=== PATIENT | female | born 2005 | race Caucasian/White ===

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

== ENCOUNTER → 2025-06-11 11:26 | Outpatient (BNV) | payer OTHER, MEDICAID, SELFPAY | PROVIDERS: Visit Provider Clinical Nurse Specialist Psychiatric/Mental Health | DX: F33.2 Major depressive disorder, recurrent severe without psychotic features (principal); F41.1 Generalized anxiety disorder; F41.0 Panic disorder [episodic paroxysmal anxiety] | CPT/HCPCS: 99205; 99417 ==

== ENCOUNTER → 2025-06-24 13:30 | Outpatient (BNV) | payer OTHER, MEDICAID, SELFPAY | PROVIDERS: Visit Provider Psychiatry & Neurology Psychiatry | DX: F33.2 Major depressive disorder, recurrent severe without psychotic features (principal) | CPT/HCPCS: 90867 ==

== ENCOUNTER 2025-07-10 06:33 | Emergency (ER) | payer OTHER, MEDICAID, SELFPAY ==
[2025-07-10 06:35] VITALS: BP 121/63; PULSE 85; RESP 16; TEMP 36.3; O2SAT 100; BMI 23.0
--- NOTE | 2025-07-10 07:10 | ED_ITS ---
HPI - Allergic Reaction General Chief complaint: Allergic Reaction Stated complaint: Allergic Reaction, Hives Time Seen by Provider: 07/10/25 06:42 Source: patient and old records reviewed Mode of arrival: ambulatory Limitations: no limitations History of Present Illness ED Provider: WILL PAULINO narrative: 20 yo female with PMH of depression and anxiety here with recurrent facial itchy and rash that had resolved after prednisone. She cannot think of any new exposures and hasn't changed anything in her day to day life. She is waiting for [place] dermatology referral. They have put her on prednisone x 8 days with good response but it returned, anti histamines. No fevers. She also developed a yeast infection after prednisone and has been on monistat which is helping. She has seen PCP and urgent care. No hx of this in the past. They asked her to use 2% hydrocortisone and fungal cream on her eyelids she is not sure if this is making it worse. MD complaint: allergic reaction Onset (ago): week(s) (3+) Exposure: unknown Symptoms: rash, itching and facial swelling Severity: moderate Treatment prior to arrival: steroids and topical medicine Previous Allergic Reaction History: none Related Data Previous Rx's ?Medication ?Instructions ?Recorded famotidine 20 mg tablet (Pepcid) 20 mg PO DAILY abdomi nal 07/10/25 discomfort #14 tabs fluconazole 150 mg tablet 150 mg PO Q3D 2 doses #2 tab s 07/10/25 prednisone 10 mg tablet See Taper PO DAILY #30 tabs 07/10/25 Allergies Allergy/AdvReac Type Severity Reaction Status Date / Time amoxicillin Allergy Intermediate Rash Verified 07/10/25 06:40 Review of Systems Review of Systems: Constitutional : No Fever, No Chills Cardiovascular : No Chest Pain, No SOB Respiratory : No Cough, No Sputum Gastrointestinal : No Nausea, No Vomiting, No Diarrhea, No abdominal Pain Genitourinary : No Dysuria, No Hematuria Musculoskeletal : No joint pain, No Myalgias, No Joint Swelling Skin : No Skin Lesions, positive skin rash All other systems reviewed and are negative Yes all other systems are reviewed and are negative [facility] Past Medical History Attestation statement: The following information was validated with the patient. Source: old records reviewed Medical History Generalized anxiety disorder with panic attacks Major depressive disorder, recurrent severe without psychotic features Social History Social History (Updated 07/10/25 @ 07:16 by Jessie Cardenas DO) Patient Tobacco Use Status: Never used Tobacco Physical Exam ED Vital Signs: Vital Signs - 24 hr 07/10/25 06:35 Temperature 97.4 F Pulse Rate 85 Respiratory Rate 16 Blood Pressure 121/63 Pulse Oximetry 100 Oxygen Delivery Method Room Air BMI result Body Mass Index 23.0 Appearance: Alert. Oriented X3. No acute distress. Eyes: Pupils equal, round and reactive to light. ENT: Pharynx normal. no angioedema she has both lower lids bogginess with dry scaling skin but no overt cellulitis, she has itchy raised bumps to forehead and chin, no signs of infection Neck: Normal inspection. Neck supple. CVS: Pulses normal. Respiratory: No respiratory distress. Abdomen: Soft and nontender. Skin: Skin warm and dry. Normal skin color. Extremities: No lower extremity edema. Neuro: Oriented X 3. No motor deficit. No sensory deficit. Medical Decision Making Medical Decision Making MDM Narrative: 20 yo female with PMH of depression and anxiety who has been dealing with intermittent itchy facial rash x 3 weeks - has completed prednisone, on claritin and hydroxyzine. At this time she was put on 2% hydrocortisone which I am stopping - I am going to start on pepcid, continue atarax and zyrtect - start on prednisone taper and refer her to [place]. She has improved with prednisone in past and tolerated it okay. Differential Diagnosis Differential Diagnoses: The differential diagnosis associated with the presentation includes contact dermatitis, eczema, allergic reaction Admission/Observation Consideration of admission/observation: Escalation of care including admissio n/observation considered can be started on diff meds and refer to derm External Record Review External record reviewed: Outpatient record Prescription Management I considered prescription management with: Pain Medication and Other Discharge Plan Discharge Clinical Impression: Contact dermatitis Allergic reaction Qualifiers: Encounter type: subsequent encounter Qualified Code(s): T78.40XD - Allergy, unspecified, subsequent encounter Patient Disposition: Home, Self-Care Instructions: General Allergic Reaction (ED) Additional Instructions: stop fungal and hydrocortisone cream to the face until you see dermatology take the yeast pill as needed can repeat a 2nd course at the end of your prednisone taper if needed continue claritin, hydroxyzine and now start pepcid as well stop monistat return for any worsening symptoms or concerns call [facility] today [address] [place] [address] [phone] Prescriptions: New prednisone 10 mg tablet See Taper PO DAILY Qty: 30 0RF Taper: Prednisone 40 mg daily for 3 Days and 0 Hour 30 mg daily for 3 Days and 0 Hour 20 mg daily for 3 Days and 0 Hour 10 mg daily for 3 Days and 0 Hour fluconazole 150 mg tablet 150 mg PO Q3D Qty: 2 1RF Rx Instructions: may repeat second dose 72 hrs after first dose if symptoms persist famotidine [Pepcid] 20 mg tablet 20 mg PO DAILY Qty: 14 0RF Print Language: Welsh
[2025-07-10 07:18] VITALS: BP 121/63; PULSE 85; RESP 16; TEMP 36.3; O2SAT 100
--- OUTSIDE RECORDS SUMMARY | 2025-07-10 07:26 | XMS_ITS | Clinical Summary ---
Author Organization [facility] Address [address] [place] [address] Care Team Providers Care Materials Planning Manager Name Role Phone Yuni Anaya Primary Care Provider [phone] Allergies Active Allergy Reactions Criticality Noted Date Comments Amoxicillin Hives 11/06/2023 Medications fluticasone propionate (Flovent HFA) 44 mcg inhaler Inhale 2 puffs by mouth 2 times daily. 01/03/2022 Active albuterol (PROAIR HFA,VENTOLIN HFA) 90 mcg inhaler Inhale 2 puffs by mouth every 4 hours as needed. 01/03/2022 Active sertraline (ZOLOFT) 100 mg tablet 50 mg. 01/01/2023 Active norgestimate-eth inyl estradioL (Wwo-Sb-Lnyzmm) 0.18/0.215/0.25 mg-25 mcg per tabletIndication s:Class 1 obesity due to excess calories without serious comorbidity with body mass index (BMI) of 30.0 to 30.9 in adult Take 1 tablet by mouth once a day. 84 tablet 3 03/13/2024 Active cholecalciferol (VITAMIN D3) 2,000 unit capsule Take 1 capsule (2,000 Units total) by mouth once a day. 90 capsule 3 03/13/2024 Active Qvar RediHaler 40 mcg/actuation HFA aerosol breath activated inhaler SMARTSI Puff(s) By Mouth Twice Daily 03/22/2024 Active ferrous fumarate (FERROCITE ORAL) Act emily QUEtiapine (SEROquel) 25 mg tablet SMARTSI.5 Tablet(s) By Mouth Twice Daily PRN 10/31/2024 Active Active Problems Problem Noted Date Diagnosed Date [...] Labs today and once back will consider [employer]BER referral v. Endocrinology, f/u prn Depression 03/09/2021 [...] after 2 weeks, or seeking prescribing from Psychiatrist/psych np, pt and parents all elect to start [...] Encounters Date Type Department Care Team Description 04/22/2025 Telephone [facility] [address] [place] [address] Cupola Operator: Dasha Carrizales, Kimmy Baker MD from Last 3 Months Social History Tobacco [...] Care Team (Late st Contact Info) Description 05/14/2026 10:40 AM EDT Office Visit [facility] [address] [place] [address] Cupola Operator: Dasha Lott, Fabiola Bailey MD [address] [place] [address] Health Maintenance Due Date Last Done Comments HIV Screening 2005 Hepatitis C Screening 2005 1 Week WCC 2005 1 Month WCC 2005 2 Month WCC 2005 4 Month WCC 2005 6 Month WCC 2005 9 Month WCC 03/27/2006 12 Month WCC 07/07/2006 15 Month WCC 09/23/2006 18 Month WCC 12/22/2006 24 Month WCC 06/20/2007 30 Month WCC 10/24/2007 3 to 21 Year WCC 2008 Well Child Check 2008 HPV Vaccines (1 - 3-dose series) 2020 Chlamydia Screening 2021 DTaP,Tdap,and Td Vaccines (2 - Td or Tdap) 05/27/2024 04/29/2024 Pneumococcal Vaccine: Pediat jung (0-5 Years) and At-Risk Patients (6-50 Years) (1 of 2 - PCV) 2024 Depression Screening and Follow-Up 09/17/2024 Social Drivers of Health Chiquita ual Screening 09/17/2024 COVID-19 Vaccine ( - 2024- season) 2025, 02/21/2021 Influenza Vaccine (#1) 2025 RSV Vaccine (60+ years old a nd patients) (1 - 1-dose 75+ series) 2080 Hepatitis B Vaccines Completed 10/08/2024, 04/04/2024, 02/28/2024 MMR Vaccines Completed 10/08/2024, 04/04/2024 Varicella Vaccines Completed 10/08/2024, 04/04/2024 Meningococcal Vaccine Completed 04/23/2025, 024 Insurance [facility] Member Subscriber Plan / Payer (Ef fective 2022-Present) Name:August Yuni Hollis Relation to Subscriber:Self Name:Yuni Rangel Payer ID:[id number] (NAIC) Type:Not on file Address: [place] [address] [place] [address] [facility] Care Teams Materials Planning Manager Relationship Specialty Start Date End Date [facility] [address] PCP - General Pediatrics 06/24/21
--- OUTSIDE RECORDS SUMMARY | 2025-07-10 07:26 | XMS_ITS | Clinical Summary ---
Author Organization [facility] Address [address] [place] [address] Phone Care Team Providers Care Cafeteria Supervisor Name Role Phone Yuni Anaya MD Primary Care Provider [phone] Yuni Anaya MD Unavailable [phone] Medications * This document contains information received from the source organization and may not represent a complete record from that organization. celecoxib (CeleBREX) 200 mg capsule Dose: 200 mg, Dose Amount: 1 cap, PO, daily, Dispense Quantity: 21 cap, Refills: 0, Entered: 08/10/23 14:07:00 EST, [id number] 08/10/2023 Active Social History Tobacco Use Types Packs/Day Years Used Date Smoking Tobacco: Never Assessed Comments Unknown Sex and Gender Information Value Date Recorded Sex Assigned at Not on file Legal Sex Female 7:02 AM EDT Gender Identity Not on file Sexual Orientation Not on file Last Filed Vital Signs Vital Sign Reading Time Taken Comments Blood Pressure - - Pulse - - Temperature - - Respiratory Rate - - Oxygen Saturation - - Inhaled Oxygen Concentration - - Weight 105 kg (231 lb 11.3 oz) 09/12/2023 9:52 A M EST Height 182 cm (5' 11.65 ) 09/12/2023 9:52 AM EST Body Mass Index 31.73 09/12/2023 9:52 AM EST Plan of Treatment Health Maintenance Due Date Last Done Comments Chlamydia and Gonorrhea Screening 2005 HIV Screening 2005 MMR Vaccines (1 of 1 - Stand vadim series) 2006 DTaP/Tdap/Td Vaccines (1 - Tdap) 2012 Anemia Screening 2017 Varicella Vaccines (1 of 2 - 13+ 2-dose series) 2018 HPV Vaccines (1 - 3-dose series) 2020 Meningococcal B Vaccine (1 o f 2 - Standard) 2021 Hepatitis C Screening 2023 Hepatitis B Vaccines (1 of 3 - 19+ 3-dose series) 2024 Influenza Vaccine (#1) 2025 HIB Vaccines Aged Out No longer eligi ble based on patient's age to complete this topic Hepatitis A Vaccines Aged Out No long er eligible based on patient's age to complete this topic IPV Vaccines Aged Out No longer eligi ble based on patient's age to complete this topic Meningococcal Vaccine Aged Out No natasha amy eligible based on patient's age to complete this topic Pneumococcal Vaccine: Pediat rics (0 to 5 Years) and At-Risk Patients (6 to 49 Years) Aged Out No longer eligible b ased on patient's age to complete this topic Rotavirus Vaccines Aged Out No longer eligible based on patient's age to complete this topic Insurance Care Teams Cafeteria Supervisor Relationship Specialty Start Date End Date Yuni Anaya MD [address] [place] [address] PCP - General 08/10/23 Yuni Anaya MD [address] [place] [address] PCP - Clinical PCP 08/10/23
== END 2025-07-10 07:45 | disposition home or self-care (01) ==
LOC: HO.ED 07:24
PROVIDERS: Emergency Provider Emergency Medicine
DX: T78.40XD Allergy, unspecified, subsequent encounter (principal)
CPT/HCPCS: 99282; 99283

== ENCOUNTER 2025-07-24 09:06 | Outpatient (REF) | payer OTHER, MEDICAID, SELFPAY ==
--- OUTSIDE RECORDS SUMMARY | 2025-07-20 13:00 | XMS_ITS ---
Author Organization [facility] Address [address] [facility] [address] [place] [address] Care Team Providers Care Drum Sprayer Name Role Phone BR[place]N ALCARAZ Unavailable [phone] ALEX ARMENDARIZ Unavailable [phone] Encounters Encounter Location Date Provider Diagnosis [facility] [address] [facility] [address] [place] [address] 07/20/2025 ALEX ARMENDARIZ Plan Of Treatment Next Appt Details Provider Name:ALEX ARMENDARIZ, 06/2025 06:00:00 PM, [address], [place], [address], Progress Notes * Yuni RANGEL NDOB:2005 (20 yo F)Acc No.[id number]:07/20/2025 CONFIDENTIAL ENCOUNTER UNLOC KED PROGRESS NOTE Psychotherapy 60 Minutes Tel evisit Patient: Yuni Correa N Provider: JANA Phoenix :2005 A ge:20 Y S ex:Female Date:07/20/2025 Phone: Address:[address] [place] [id number] Check Out:07:44 PM EST Billing Information: * Procedure Codes: * Electronic signature of JANA HOOD, [id number] on 07/24/2025 at 10:14 AM EST Sign off status: Pending Signatures: No Ad Hoc Signature Added * Provider: JANA Phoenix Date: 09/19/2024 Generated for [place]ai ng/Faxing/eTransmitting on: 09/23/2024 10:14 AM EST
--- OUTSIDE RECORDS SUMMARY | 2025-07-23 14:00 | XMS_ITS ---
Author Organization [facility] Address [address] [facility] [address] [place] [address] Care Team Providers Care Link Trainer Mechanic Name Role Phone BROOKLYN ALCARAZ Unavailable [phone] ALEX ARMENDARIZ Unavailable [phone] Encounters Encounter Location Date Provider Diagnosis [facility] [address] [facility] [address] [place] [address] 07/23/2025 ALEX ARMENDARIZ Plan Of Treatment Next Appt Details Provider Name:ALEX ARMENDARIZ, 06/2025 06:00:00 PM, [address], [place], [address], Progress Notes * Yuni RANGEL NDOB:2005 (20 yo F)Acc No.[id number]:07/23/2025 CONFIDENTIAL ENCOUNTER UNLOC KED PROGRESS NOTE Psychotherapy 60 Minutes Tel evisit Patient: Yuni Correa N Provider: JANA Phoenix :2005 A ge:20 Y S ex:Female Date:07/23/2025 Phone: Address:[address] [id number] Billing Information: * Procedure Codes: * Electronic signature of JANA HOOD, [id number] on 07/24/2025 at 10:14 AM EST Sign off status: Pending Signatures: No Ad Hoc Signature Added * Provider: JANA Phoenix Date: 09/22/2024 Generated for Franklin loya/Ryang/eTransmitting on: 09/23/2024 10:14 AM EST
--- NOTE | 2025-07-24 09:11 | ECG_ITS ---
Test Reason : tachycardia Blood Pressure : */* mmHG Vent. Rate : 71 BPM Atrial Rate : 71 BPM P-R Int : 158 ms QRS Dur : 76 ms QT Int : 388 ms P-R-T Axes : 57 65 58 degrees QTcB Int : 421 ms Normal sinus rhythm Normal ECG No previous ECGs available Referred By: Nuria Munoz Electronically Signed By: Glenn Li
[2025-07-24 09:23] LABS: MANUAL DIFF FLAG NO
[2025-07-24 09:40] LABS: Hematocrit 40.4 % (37.0-47.0); Hemoglobin 13.2 g/dl (12.0-16.0); Imm Gran Abs Auto 0.01 X10*3/uL (0.00-0.03); Imm Gran Pct Auto 0.2 % (0.0-0.4); Lymphocytes Absolute Auto 1.9 X10*3/uL (1.2-4.9); Mean Corpuscular HGB Conc 32.7 g/dl (31.0-35.0); Mean Corpuscular Hemoglobin 29.7 pg (27.0-33.0); Mean Corpuscular Volume 91.0 fL (80.0-98.0); NRBC Abs Auto 0.000 X10*3/uL (0.0-0.012); NRBC Pct Auto 0.0 /100WBC (0.0-0.2); Platelet Count 285 X10*3/uL (160-400); Red Blood Count 4.44 X10*6/uL (4.20-5.50); White Blood Count 6.0 X10*3/uL (4.8-10.8)
--- OUTSIDE RECORDS SUMMARY | 2025-07-24 10:14 | XMS_ITS | Encounter Summary ---
Author Organization [facility] Address [address] [place] [address] Care Team Providers Care Tree Pruner Name Role Phone Yuni Anaya S Primary Care Provider [phone] Reason for Visit * Reason Comments Injury Encounter Details Date Type Department Care Team ([facility] st Contact Info) Description 01/07/[address] [address] Nancy Alamo NP Injury Social History Tobacco Use Types Packs/Day Years Used Date Smoking Tobacco: Never Assessed Comments No Sex and Gender Information Value Date Recorded Sex Assigned at Not on file Legal Sex Female 6:05 PM EDT Gender Identity Not on file Sexual Orientation Not on file documented as of this encounter Last Filed Vital Signs Vital Sign Reading Time Taken Comments Blood Pressure 112/74 01/07/2019 6:59 PM EDT Pulse 82 01/07/2019 6:59 PM EDT Temperature - - Respiratory Rate - - Oxygen Saturation - - Inhaled Oxygen Concentration - - Weight - - Height - - Body Mass Index - - documented in this encounter Miscellaneous Notes * Telephone Encounter - Kelly Lacey - 01/07/2019 6:57 PM EDT Dad states that she fell backwards at home and hit the back of her head on a shelf. Today has a headache and was dizzy. Provider evaluated and recommended her to be seen in the ER. documented in this encounter Plan of Treatment Not on file documented as of this encounter Visit Diagnoses Not on filedocumented in this encounter Care Teams Tree Pruner Relationship Specialty Start Date End Date Yuni Anaya [address] [address] PCP - General Pediatrics 05/25/17 documented as of this encounter
--- OUTSIDE RECORDS SUMMARY | 2025-07-24 10:14 | XMS_ITS | Clinical Summary ---
Author Organization [facility] Address [address] [place] [address] Care Team Providers Care Efficiency Miner Name Role Phone Yuni Anaya Primary Care Provider [phone] Allergies Active Allergy Reactions Criticality Noted Date Comments Amoxicillin Hives 11/06/2023 Medications fluticasone propionate (Flovent HFA) 44 mcg inhaler Inhale 2 puffs by mouth 2 times daily. 01/03/2022 Active albuterol (PROAIR HFA,VENTOLIN HFA) 90 mcg inhaler Inhale 2 puffs by mouth every 4 hours as needed. 01/03/2022 Active sertraline (ZOLOFT) 100 mg tablet 50 mg. 01/01/2023 Active norgestimate-eth inyl estradioL (Ero-Ja-Qujubh) 0.18/0.215/0.25 mg-25 mcg per tabletIndication s:Class 1 [...] Labs today and once back will consider TRANSACTION MANAGER referral v. Endocrinology, f/u prn Depression 03/09/2021 [...] after 2 weeks, or seeking prescribing from Psychiatrist/team leader/research psychologist, pt and parents all elect to start [...] Description 05/14/2026 10:40 AM EDT Office Visit [facility] [address] [place] [address] Forepart Rounder: Dasha Lott, Fabiola Bailey MD [address] [place] [address] Health Maintenance Due Date Last Done Comments HIV Screening 2005 Hepatitis C Screening 2005 1 Week WCC 2005 1 Month WC 2005 2 Month WCC 2005 4 Month WCC 2005 6 Month WCC 2005 9 Month WCC 03/27/2006 12 Month WCC 07/07/2006 15 Month WC 09/23/2006 18 Month WC 12/22/2006 24 Month WC 06/20/2007 30 Month WC 10/24/2007 3 to 21 Year WC 2008 Well Child Check 2008 HPV Vaccines (1 - 3-dose series) 2020 Chlamydia Screening 2021 DTaP,Tdap,and Td Vaccines (2 - Td or Tdap) 05/27/2024 04/29/2024 Pneumococcal Vaccine: Pediat jung (0-5 Years) and At-Risk Patients (6-50 Years) (1 of 2 - PCV) 2024 Depression Screening and Follow-Up 09/17/2024 Social Drivers of Health Chiquita ual Screening 09/17/2024 COVID-19 Vaccine (3 - 2024- season) 2025, 02/21/2021 Influenza Vaccine (#1) 2025 RSV Vaccine (60+ years old a nd patients) (1 - 1-dose 75+ series) 2080 Hepatitis B Vaccines Completed 10/08/2024, 04/04/2024, 02/28/2024 MMR Vaccines Completed 10/08/2024, 04/04/2024 Varicella Vaccines Completed 10/08/2024, 04/04/2024 Meningococcal Vaccine Completed 04/23/2025, 024 Insurance [facility] Member Subscriber Plan / Payer (Ef fective 2022-Present) Name:Evelynekendrick Yuni Hollis Relation to Subscriber:Self Name:Yuni Rangel Payer ID:[id number] (NAIC) Type:Not on file Address: [address] [facility] Care Teams Efficiency Miner Relationship Specialty Start Date End Date [facility] [address] PCP - General Pediatrics 06/24/21
--- OUTSIDE RECORDS SUMMARY | 2025-07-24 10:14 | XMS_ITS | Continuity of Care Document ---
Author Organization [facility] Address [address] [place] [address] Care Team Providers Care Junk Removal Specialist Name Role Phone Yuni Anaya S Primary Care Provider [phone] Encounters Date Type Department Care Team Description 02/22/[address] [address] Marilia Marcano RN Results ( xray needs disc) 02/20/2021 6:15 PM EDT [facility] [address] [place] [address] Nose injury, initial encounter 02/20/2021 6:00 PM EDT Office Visit [address] [address] Leila Alvarado PA Nose injury, initial encounter (Primary Dx) 02/20/2021 Travel 05/03/2020 1:30 PM EDT [facility] [address] [place] [address] 05/03/2020 1:15 PM EDT Office Visit [address] [address] Angelita Hernandez NP Nasal pain; Nasal trauma, initial encounter 05/03/2020 Travel 06/09/2019 6:30 PM EDT [facility] [address] [place] [address] Injury of left hand, initial encounter 06/09/2019 6:00 PM EDT Office Visit [address] [address] Joycelyn Arellano PA Closed avulsion fracture of middle phalanx of finger, initial encounter (Primary Dx); Injury of left hand, initial encounter 01/07/[address] [address] Nancy Alamo NP Injury 11/17/2018 4:45 PM EST Radiology [facility] Xray [address] [place] [address] Injury of right hand, initial encounter 11/17/2018 4:30 PM EST Office Visit [address] [address] Arnulfo Miller NP Injury of right hand, initial encounter (Primary Dx); Closed nondisplaced fracture of proximal phalanx of right little finger, initial encounter 09/08/2018 7:00 PM EST Radiology [facility] Xray [address] [place] [address] Right ankle injury, initial encounter 09/08/2018 6:30 PM EST Office Visit [address] [address] Nancy Alamo NP Right ankle injury, initial encounter (Primary Dx) 05/09/2018 8:15 PM EDT Radiology [facility] Xray [address] [place] [address] Left ankle injury, initial encounter 05/09/2018 7:45 PM EDT Office Visit [address] [address] Ibis Kamara NP Left ankle injury, initial encounter (Primary Dx) 05/25/2017 6:15 PM EDT Office Visit [address] [address] Arnulfo Miller NP Otitis externa of right ear, unspecified chronicity, unspecified type (Primary Dx); OME (otitis media with effusion), unspecified laterality 2005 Orders Only NON FC SA [address] [address] Adan Hollingsworth Allergies No known active allergies Medications No known medications Active Problems No known active problems Social History Smoking Status as of 07/24/2025 Tobacco Use Types Packs/Day Years Used Date Smoking Tobacco: Never Assessed Intimate Partner Violence Answer Date R ecorded Fear of Current or Ex-Partner Not on file Emotionally Abused Not on file 05/10/2023 Physically Abused Not on file 05/10/2023 Sexually Abused Not on file 05/10/2023 Feel Safe at Home Not on file 05/10/2023 Child Education and Socialization Answer Date Recorded In Preschool Education Not on file 3 In school and getting help needed? Not on file 02/16/2023 Nightly Reading to Child Not on file 023 In Daycare Not on file 02/16/2023 Type of Daycare Not on file 02/16/2023 # Days in Daycare Not on file 02/16/2023 In Hydrogenation Still Operator Program Not on file 3 Type of Hydrogenation Still Operator Program Not on file 10/2022 Sex and Gender Information Value Date Recorded Sex Assigned at Not on file Legal Sex Female 6:05 PM EDT Gender Identity Not on file Sexual Orientation Not on file Last Filed Vital Signs Vital Sign Reading Time Taken Comments Blood Pressure 104/70 06/09/2019 6:06 PM EDT Pulse 88 02/20/2021 5:51 PM EDT Temperature 36.2 C (97.2 F) 02/20/2021 5:51 PM EDT Respiratory Rate 16 02/20/2021 5:51 PM EDT Oxygen Saturation 99% 05/03/2020 1:06 PM EDT Inhaled Oxygen Concentration - - Weight 94.3 kg (208 lb) 02/20/2021 5:51 PM EDT Height - - Body Mass Index - - Plan of Treatment Not on file Procedures * Due to [place] state law, this organization might not be sharing negative HIV tests. Procedure Name Priority Date/Time Associated Diagnosis Comments XRAY NASAL BONES - COMPLETE, MIN 3 VIEWS (DX: INJURY TO NOSE) Routine 02/20/2021 6:27 PM EDT Nose injury, initial encounter XRAY NASAL BONES - COMPLETE, MIN 3 VIEWS (DX: INJURY TO NOSE) STAT (All results called to provider) 05/03/2020 1:25 PM EDT XRAY HAND MIN 3 VWS - LEFT STAT (All results called to provider) 06/09/2019 6:26 PM EDT Injury of left hand, initial encounter XRAY FINGER(S) MIN 2 VWS - RIGHT STAT (All results called to provider) 11/17/2018 4:49 PM EST Injury of right hand, initial encounter XRAY ANKLE COMPLETE MIN 3 VWS - RIGHT STAT (All results called to provider) 09/08/2018 7:07 PM EST Right ankle injury, initial encounter XRAY ANKLE COMPLETE MIN 3 VWS - LEFT STAT (All results called to provider) 05/09/2018 8:10 PM EDT Left ankle injury, initial encounter HEMATOCRIT Routine 2005 8:20 AM EDT HOLDING BLOOD SPECIMEN Routine 2005 3:55 AM EDT Results * Due to [place] state law, this organization might not be sharing negative HIV tests. * XRAY NASAL BONES - COMPLETE, MIN 3 VIEWS (DX: INJURY TO NOSE S09.92XA/ 959.09) FC (02/20/2021 6:27 PM EDT) Only the most recent of2 resultswithin the time period is included. Anatomical Region Laterality Modality HEAD/BRAIN Radiographic Mariza ging 02/20/2021 8:57 PM EDT Narrative 02/20/2021 8:57 PM EDT CONTRAST: 3 views of the facial bones Comparison: CR - XRAY NASAL BONES - COMPLETE MIN 3 VIEWS (DX: INJURY TO NOSE 959. - 05/03/2020 12:42 PM EDT Findings: Nondisplaced left nasal bone fracture. No other fractures. Normal alignment. Normal aeration of paranasal sinuses. Impression: Nondisplaced left nasal bone fracture. Procedure Note Vickey York MD - 02/20/2021 CONTRAST: 3 views of the facial bones Comparison: CR - XRAY NASAL BONES - COMPLETE MIN 3 VIEWS (DX: INJURY TO NOSE 959. - 05/03/2020 12:42 PM EDT Findings: Nondisplaced left nasal bone fracture. No other fractures.Normal alignment. Normal aeration of paranasal sinuses. Impression: Nondisplaced left nasal bone fracture. Leila Alvarado PA IMG XRAY NO CONTRAST ORDERABL ES Final Result * XRAY HAND MIN 3 VWS - LEFT FC (06/09/2019 6:26 PM EDT) Anatomical Region Laterality Modality UPPER EXTREMITY Radiographic Mariza ging 06/09/2019 7:02 PM EDT Narrative 06/09/2019 7:02 PM EDT 3 views left hand Comparison: None Findings: There is a tiny chip or avulsion fracture at the palmar margin of the base of the second middle phalanx. No other fractures identified.. Skeletally immature bones. No radiopaque foreign body. Impression: 1. Small chip or avulsion fracture at the palmar margin of the base of the second middle phalanx. Procedure Note Obey Lott MD - 06/09/2019 3 views left hand Comparison: None Findings: There is a tiny chip or avulsion fracture at the palmar margin of the baseof the second middle phalanx. No other fractures identified.. Skeletallyimmature bones. No radiopaque foreign body. Impression: 1. Small chip or avulsion fracture at the palmar margin of the base ofthe second middle phalanx. Joycelyn HARDIN IMG XRAY NO CONTRAST ORDERABL ES Final Result * XRAY FINGER(S) MIN 2 VWS - RIGHT FC (11/17/2018 4:49 PM EST) Anatomical Region Laterality Modality UPPER EXTREMITY Radiographic Mariza ging 11/17/2018 6:38 PM EST Narrative 11/17/2018 6:38 PM EST 3 views of the right fifth finger. Findings: There is an acute fracture of the proximal phalanx without significant displacement. No other fractures are seen. No dislocation is identified. Impression: Acute fracture of the proximal phalanx. Procedure Note Juan Carlos Kimbrough MD - 11/17/2018 3 views of the right fifth finger. Findings: There is an acute fracture of the proximal phalanx without significant displacement. No other fractures are seen. No dislocation is identified. Impression: Acute fracture of the proximal phalanx. Arnulfo Miller [employer] IMG XRAY NO CONTRAST ORDERABLE S Final Result * XRAY ANKLE COMPLETE MIN 3 VWS - RIGHT FC (09/08/2018 7:07 PM EST) Anatomical Region Laterality Modality LOWER EXTREMITY Radiographic Mariza ging 09/08/2018 8:53 PM EST Narrative 09/08/2018 8:53 PM EST 3 views of the right ankle Comparison: CR - XRAY ANKLE COMPLETE MIN 3 VWS - LEFT FC - 05/09/2018 07:38 PM EDT Findings: Normal right ankle. No fractures. Normal alignment. Normal soft tissues. Impression: Normal right ankle. Procedure Note Vickey York MD - 09/08/2018 3 views of the right ankle Comparison: CR - XRAY ANKLE COMPLETE MIN 3 VWS - LEFT FC - 05/09/2018 07:38 PM EDT Findings: Normal right ankle. No fractures. Normal alignment. Normalsoft tissues. Impression: Normal right ankle. us Nancy Alamo [employer] OFFICER IMG XRAY NO CONTRAST ORDERABLES Final Result * XRAY ANKLE COMPLETE MIN 3 VWS - LEFT FC (05/09/2018 8:10 PM EDT) Anatomical Region Laterality Modality LOWER EXTREMITY Radiographic Mariza ging 05/09/2018 10:0 9 PM EDT Narrative 05/09/2018 10:09 PM EDT 3 views left ankle Comparison: None Findings: No fractures or dislocations. Skeletally immature bones. No joint effusion. No radiopaque foreign body. Impression: 1. Mild lateral ankle swelling Procedure Note Umer Ellis MD - 05/09/2018 3 views left ankle Comparison: None Findings: No fractures or dislocations. Skeletally immature bones. No joint effusion. No radiopaque foreign body. Impression: 1. Mild lateral ankle swelling 22:09:06 us Ibis Kamara [employer] OFFICER IMG XRAY NO CONTRAST ORDERABLES Final Result * HEMATOCRIT (2005 8:20 AM EDT) HCT (HEMATOCRIT) 62.0 44.0 - 64.0 % [facility] (CLIA# [id number]) Comment:Verified by repeat a nalysis of same specimen 2005 8:20 AM EDT 2005 9:08 AM EDT Narrative [facility] (CLIA# [id number]) - 2005 8:20 AM EDT STAT us Jeny Dowling [facility] Final Result [facility] (CLIA# [id number]) [address] [place] [address] * HOLDING BLOOD SPECIMEN (2005 3:55 AM EDT) [facility] (CLIA# [id number]) Comment:CORD SPECIMEN RETAIN ED IN BLOOD BANK FOR 35 DAYS [facility] (CLIA# [id number]) Comment:PLEASE CALL BLOOD BA NK IF FURTHER TESTING IS REQUIRED 2005 3:55 AM EDT 2005 7:02 AM EDT Narrative [facility] (CLIA# [id number]) - 2005 3:55 AM EDT MOTHER NICKIE [id number] A POS Adan Hollingsworth LABOR[facility] Final Result [facility] (CLIA# [id number]) [address] [place] [address] Visit Diagnoses Diagnosis Start Date Otitis externa of right ear, unspecified chronicity, unspecified type 05/25/2017 OME (otitis media with effusion), unspecified laterality 05/25/2017 Left ankle injury, initial encounter 05/09/2018 Left ankle injury, initial encounter 05/09/2018 Right ankle injury, initial encounter 09/08/2018 Right ankle injury, initial encounter 09/08/2018 Injury of right hand, initial encounter 11/17/2018 Injury of right hand, initial encounter 11/17/2018 Closed nondisplaced fracture of proximal phalanx of right little finger, initial encounter 11/17/2018 Injury of left hand, initial encounter 06/09/2019 Injury of left hand, initial encounter 06/09/2019 Closed avulsion fracture of middle phalanx of finger, initial encounter 06/09/2019 Nasal pain Other diseases of nasal cavity and sinuses 05/03/2020 Nasal trauma, initial encounter 05/03/2020 Nose injury, initial encounter 02/20/2021 Nose injury, initial encounter 02/20/2021 Care Teams Junk Removal Specialist Relationship Specialty Start Date End Date Yuni Anaya [place] [address] [place] [address] PCP - General Pediatrics 05/25/17
--- OUTSIDE RECORDS SUMMARY | 2025-07-24 10:14 | XMS_ITS | Patient Health Record ---
Author Organization [facility] Billing Address [address] [place] [id number] Care Team Providers Care Datawarehouse Developer Name Role Phone Yuni Anaya MD Primary Care Provider TYREE Will Unavailable [phone] Reason For Referral No Information Medications Medication SIG (Take, Route, Frequency, Duration) Notes Start Date End Date Status Multivitamin Childrens Gummies - 1 tab(s) chewed once a day; Duration: 30 day(s) Active Social History Tobacco Use: Social History Observation Description Date Details (start date - stop date) Never Smoker NA - NA Smoking: Question Answer Notes Are you a: never smoker Not exposed to s econd-hand cigarette smoke Problems Problem Type SNOMED Code ICD Code Onset Dates Problem Status W/U Status Risk Notes Problem Eruption of skin (156903202) Rash and other nonspecific skin eruption (R21) Active confirmed Plan Of Treatment No Information Insurance Providers Payer Name Payer Address Payer Phone Subscriber Number Group Number Insured Name Patient Relationship to Insured Coverage Start Date Coverage End Date [facility] CLAIMS DEPARTMENT [address] [place] Ibanez [phone] [id number] Yuni Koch Self - patient is the insured Medical (General) History Surgical History Surgery Date(Month/Year)
--- OUTSIDE RECORDS SUMMARY | 2025-07-24 10:15 | XMS_ITS | Patient Health Record ---
Author Organization [facility] Address [address] [facility] [address] [place] [address] Care Team Providers Care Sausage Stuffer Name Role Phone BROOKLYN ALCARAZ Unavailable [phone] ALEX ARMENDARIZ Unavailable [phone] SATURNINO SIMPSON Unavailable [phone] Therapy, Provider Unavailable [phone] Karen Emery Unavailable [phone] Allergies Allergen (clinical drug ingredient) Drug/Non Drug Allergy documented on EMR Reaction Allergy Type Onset Date Status amoxicillin Amoxicillin Unknown Drug Allergy Act emily Reason For Referral No Information Medications Medication SIG (Take, Route, Frequency, Duration) Notes Start Date End Date Status Adderall XR 25 MG Capsule Extended Release 24 Hour 1 capsule in the morning Orally Once a day; Duration: 60 days 02/26/2025 Active Adderall XR 25 MG Capsule Extended Release 24 Hour 1 capsule in the morning Orally Once a day 03/05/2025 Active Adderall XR 25 MG Capsule Extended Release 24 Hour 1 capsule in the morning Orally Once a day; Duration: 30 days 12/01/2024 Active Adderall XR 25 MG Capsule Extended Release 24 Hour 1 capsule in the morning Orally Once a day; Duration: 90 days 11/27/2024 Active Social History Section Notes: Parents are . Lives with dad. Sees mom Sunday every other weekend. Brother Antoine away at college. Kenneth year in high school. Reports she has a good group of friends. In the band. Parents are . Lives with dad. Sees mom Sunday every other weekend. Brother Antoine away at college. Kenneth year in high school. Reports she has a good group of friends. In the band. Parents are . Lives with dad. Sees mom Sunday every other weekend. Brother Natoine away at college. Kenneth year in high school. Reports she has a good group of friends. In the band. Parents are . Lives with dad. Sees mom Wednesday every other weekend. Brother Antoine away at college. Kenneth year in high school. Reports she has a good group of friends. In the band. Parents are . Lives with dad. Sees mom Wednesday every other weekend. Brother Antoine away at college. Kenneth year in high school. Reports she has a good group of friends. In the band. Parents are . Lives with dad. Sees mom Wednesday every other weekend. Brother Antoine away at college. Kenneth year in high school. Reports she has a good group of friends. In the band. Parents are . Lives with dad. Sees mom Wednesday every other weekend. Brother Antoine away at college. Kenneth year in high school. Reports she has a good group of friends. In the band. Parents are . Lives with dad. Sees mom Wednesday every other weekend. Brother Antoine away at college. Kenneth year in high school. Reports she has a good group of friends. In the band. Parents are . Lives with dad. Sees mom Wednesday every other weekend. Brother Antoine away at college. Kenneth year in high school. Reports she has a good group of friends. In the band. Parents are . Lives with dad. Sees mom Wednesday every other weekend. Brother Antoine away at college. Kenneth year in high school. Reports she has a good group of friends. In the band. Parents are . Lives with dad. Sees mom Wednesday every other weekend. Brother Antoine away at college. Kenneth year in high school. Reports she has a good group of friends. In the band. Parents are . Lives with dad. Sees mom Wednesday every other weekend. Brother Antoine away at college. Kenneth year in high school. Reports she has a good group of friends. In the band. Parents are . Lives with dad. Sees mom Wednesday every other weekend. Brother Antoine away at college. Kenneth year in high school. Reports she has a good group of friends. In the band. Parents are . Lives with dad. Sees mom Wednesday every other weekend. Brothsammie Schultz away at college. Kenneth year in high school. Reports she has a good group of friends. In the band. Parents are . Lives with dad. Sees mom Wednesday every other weekend. Brothsammie Schultz away at college. Kenneth year in high school. Reports she has a good group of friends. In the band. Parents are . Lives with dad. Sees mom Wednesday every other weekend. Brothsammie Schultz away at college. Kenneth year in high school. Reports she has a good group of friends. In the band. Parents are . Lives with dad. Sees mom Wednesday every other weekend. Brothsammie Schultz away at college. Kenneth year in high school. Reports she has a good group of friends. In the band. Problems Problem Type SNOMED Code ICD Code Onset Dates Problem Status W/U Status Risk Notes Problem Anxiety disorder (727850047) Anxiety disorder, unspecified (F41.9) Active confirmed Problem Obsessive-compuls emily disorder (550691533) Mixed obsessional thoughts and acts (F42.2) Active confirmed Problem Obsessive-compuls emily disorder (729552552) Obsessive-compuls emily disorder, unspecified (F42.9) Active confirmed Problem Moderate recurrent major depression (91769732) Moderate episode of recurrent major depressive disorder (F33.1) Active confirmed Problem Mild recurrent major depression (61911051) Mild episode of recurrent major depressive disorder (F33.0) Active confirmed Problem Attention deficit hyperactivity disorder, predominantly inattentive type (80613316) Attention deficit hyperactivity disorder (ADHD), predominantly inattentive type (F90.0) Active confirmed Problem Post traumatic stress disorder (47876280) Post traumatic stress disorder (F43.10) Active confirmed Encounters Encounter Location Date Provider Diagnosis [facility] Telehealth [facility] [address] [place] [address] 07/20/2025 [facility] Telehealth 1 [facility] [address] [place] [address] 07/23/2025 [facility] Telehealth 1 [facility] [address] [place] [address] 07/25/2024 BROOKLYN ZAMUDIO-DELROY Anxiety disorder, unspecified F41.9 ; Obsessive-compulsive disorder, unspecified F42.9 and Attention deficit hyperactivity disorder (ADHD), predominantly inattentive type F90.0 [facility] [address] [address] 07/25/2024 BROOKLYN DENAULT-MAY Anxiety disorder, unspecified F41.9 ; Mixed obsessional thoughts and acts F42.2 ; Mild episode of recurrent major depressive disorder F33.0 and Attention deficit hyperactivity disorder (ADHD), predominantly inattentive type F90.0 [facility] [address] [address] 07/28/2024 BROOKLYN DENAULT-MAY Anxiety disorder, unspecified F41.9 ; Obsessive-compulsive disorder, unspecified F42.9 and Attention deficit hyperactivity disorder (ADHD), predominantly inattentive type F90.0 [facility] [address] [address] 07/28/2024 BROOKLYN DENAULT-MAY Anxiety disorder, unspecified F41.9 ; Mixed obsessional thoughts and acts F42.2 ; Mild episode of recurrent major depressive disorder F33.0 and Attention deficit hyperactivity disorder (ADHD), predominantly inattentive type F90.0 [facility] [address] [address] 07/31/2024 SATURNINO SIMPSON Mild episode of recurrent major depressive disorder F33.0 ; Mixed obsessional thoughts and acts F42.2 and Attention deficit hyperactivity disorder (ADHD), predominantly inattentive type F90.0 [facility] [address] [address] 08/01/2024 BROOKLYN DENAULT-MAY Anxiety disorder, unspecified F41.9 ; Obsessive-compulsive disorder, unspecified F42.9 and Attention deficit hyperactivity disorder (ADHD), predominantly inattentive type F90.0 [facility] [address] [address] 08/04/2024 SATURNINO SIMPSON Mild episode of recurrent major depressive disorder F33.0 ; Mixed obsessional thoughts and acts F42.2 and Attention deficit hyperactivity disorder (ADHD), predominantly inattentive type F90.0 [facility] [address] [address] 08/06/2024 BROOKLYN DENAULT-MAY Anxiety disorder, unspecified F41.9 ; Obsessive-compulsive disorder, unspecified F42.9 and Attention deficit hyperactivity disorder (ADHD), predominantly inattentive type F90.0 [facility] [address] [address] 08/07/2024 SATURNINO SIMPSON Mild episode of recurrent major depressive disorder F33.0 ; Mixed obsessional thoughts and acts F42.2 and Attention deficit hyperactivity disorder (ADHD), predominantly inattentive type F90.0 [facility] [address] [address] 08/08/2024 BROOKLYN DENAULT-MAY Anxiety disorder, unspecified F41.9 ; Obsessive-compulsive disorder, unspecified F42.9 and Attention deficit hyperactivity disorder (ADHD), predominantly inattentive type F90.0 [facility] [address] [address] 08/08/2024 BROOKLYN DENAULT-MAY Anxiety disorder, unspecified F41.9 ; Obsessive-compulsive disorder, unspecified F42.9 and Attention deficit hyperactivity disorder (ADHD), predominantly inattentive type F90.0 [facility] [address] [address] 08/10/2024 ALEX ARMENDARIZ Mild episode of recurrent major depressive disorder F33.0 [facility] [address] [address] 08/12/2024 BROOKLYN DENAULT-MAY Anxiety disorder, unspecified F41.9 ; Obsessive-compulsive disorder, unspecified F42.9 and Attention deficit hyperactivity disorder (ADHD), predominantly inattentive type F90.[address] [place] [address] 08/18/2024 Karen Emery Attention deficit hyperactivity disorder (ADHD), predominantly inattentive type F90.0 [facility] [address] [address] 08/19/2024 BROOKLYN DENAULT-MAY Anxiety disorder, unspecified F41.9 ; Obsessive-compulsive disorder, unspecified F42.9 and Attention deficit hyperactivity disorder (ADHD), predominantly inattentive type F90.0 [facility] [address] [address] 08/22/2024 BROOKLYN DENAULT-MAY Anxiety disorder, unspecified F41.9 ; Obsessive-compulsive disorder, unspecified F42.9 and Attention deficit hyperactivity disorder (ADHD), predominantly inattentive type F90.0 [facility] 1 [facility] [address] [place] [address] 08/25/2024 SATURNINO SIMPSON Mild episode of recurrent major depressive disorder F33.0 ; Mixed obsessional thoughts and acts F42.2 and Attention deficit hyperactivity disorder (ADHD), predominantly inattentive type F90.0 [facility] [address] [address] 08/25/2024 Karen Emery Attention deficit hyperactivity disorder (ADHD), predominantly inattentive type F90.[address] [address] 08/28/2024 Karen Emery Attention deficit hyperactivity disorder (ADHD), predominantly inattentive type F90.0 [facility] Telehealth [address] [address] 08/29/2024 BROOKLYN DENAULT-MAY Anxiety disorder, unspecified F41.9 ; Obsessive-compulsive disorder, unspecified F42.9 and Attention deficit hyperactivity disorder (ADHD), predominantly inattentive type F90.[address] [address] 09/01/2024 BROOKLYN DENAULT-MAY Anxiety disorder, unspecified F41.9 ; Obsessive-compulsive disorder, unspecified F42.9 and Attention deficit hyperactivity disorder (ADHD), predominantly inattentive type F90.[address] [address] 09/16/2024 BROOKLYN DENAULT-MAY Anxiety disorder, unspecified F41.9 ; Obsessive-compulsive disorder, unspecified F42.9 and Attention deficit hyperactivity disorder (ADHD), predominantly inattentive type F90.0 [facility] Telehealth [address] [address] 09/19/2024 BROOKLYN DENAULT-MAY Anxiety disorder, unspecified F41.9 ; Obsessive-compulsive disorder, unspecified F42.9 and Attention deficit hyperactivity disorder (ADHD), predominantly inattentive type F90.[address] [address] 09/23/2024 BROOKLYN DENAULT-MAY Anxiety disorder, unspecified F41.9 ; Obsessive-compulsive disorder, unspecified F42.9 and Attention deficit hyperactivity disorder (ADHD), predominantly inattentive type F90.0 [facility] [address] [address] 09/24/2024 Karen Emery Attention deficit hyperactivity disorder (ADHD), predominantly inattentive type F90.[address] [address] 09/25/2024 Karen Emery Attention deficit hyperactivity disorder (ADHD), predominantly inattentive type F90.0 [facility] [address] [address] 09/26/2024 BROOKLYN DENAULT-MAY Anxiety disorder, unspecified F41.9 ; Obsessive-compulsive disorder, unspecified F42.9 and Attention deficit hyperactivity disorder (ADHD), predominantly inattentive type F90.0 [facility] [address] [address] 09/29/2024 SATURNINO SIMPSON Mild episode of recurrent major depressive disorder F33.0 ; Mixed obsessional thoughts and acts F42.2 and Attention deficit hyperactivity disorder (ADHD), predominantly inattentive type F90.0 [facility] [address] [address] 09/30/2024 BROOKLYN DENAULT-MAY Anxiety disorder, unspecified F41.9 ; Obsessive-compulsive disorder, unspecified F42.9 and Attention deficit hyperactivity disorder (ADHD), predominantly inattentive type F90.0 [facility] [address] [address] 10/03/2024 BROOKLYN DENAULT-MAY Anxiety disorder, unspecified F41.9 ; Obsessive-compulsive disorder, unspecified F42.9 and Attention deficit hyperactivity disorder (ADHD), predominantly inattentive type F90.[address] [address] 10/07/2024 BROOKLYN DENAULT-MAY Anxiety disorder, unspecified F41.9 ; Obsessive-compulsive disorder, unspecified F42.9 and Attention deficit hyperactivity disorder (ADHD), predominantly inattentive type F90.0 [facility] [address] [address] 10/10/2024 BROOKLYN DENAULT-MAY Anxiety disorder, unspecified F41.9 ; Obsessive-compulsive disorder, unspecified F42.9 and Attention deficit hyperactivity disorder (ADHD), predominantly inattentive type F90.0 [facility] [address] [address] 10/17/2024 BROOKLYN ALCARAZ Anxiety disorder, unspecified F41.9 ; Obsessive-compulsive disorder, unspecified F42.9 and Attention deficit hyperactivity disorder (ADHD), predominantly inattentive type F90.0 [facility] [address] [address] 10/24/2024 BROOKLYN LIZZ-MAY Attention deficit hyperactivity disorder (ADHD), predominantly inattentive type F90.0 and Other reactions to severe stress F43.[address] [address] 10/28/2024 Karen Emery Attention deficit hyperactivity disorder (ADHD), predominantly inattentive type F90.0 [facility] [address] [address] 10/31/2024 SATURNINO SIMPSON Mild episode of recurrent major depressive disorder F33.0 ; Mixed obsessional thoughts and acts F42.2 and Attention deficit hyperactivity disorder (ADHD), predominantly inattentive type F90.0 [facility] [address] [address] 10/31/2024 BROOKLYN ZAMUDIO-MAY Attention deficit hyperactivity disorder (ADHD), predominantly inattentive type F90.0 and Other reactions to severe stress F43.89 [facility] [address] [address] 11/14/2024 RBOOKLYN ZAMUDIO-MAY Attention deficit hyperactivity disorder (ADHD), predominantly inattentive type F90.0 and Other reactions to severe stress F43.89 [facility] [address] [address] 11/21/2024 BROOKLYN ZAMUDIO-MAY Attention deficit hyperactivity disorder (ADHD), predominantly inattentive type F90.0 and Other reactions to severe stress F43.[address] [address] 11/27/2024 Karen Emery Attention deficit hyperactivity disorder (ADHD), predominantly inattentive type F90.0 [facility] [address] [address] 11/28/2024 BROOKLYN ZAMUDIO-MAY Attention deficit hyperactivity disorder (ADHD), predominantly inattentive type F90.0 and Other reactions to severe stress F43.89 [facility] [address] [address] 12/01/2024 SATURNINO SIMPSON Mild episode of recurrent major depressive disorder F33.0 ; Mixed obsessional thoughts and acts F42.2 and Attention deficit hyperactivity disorder (ADHD), predominantly inattentive type F90.0 [facility] [address] [address] 12/03/2024 BROOKLYNCL WAREDEISY-MAY Attention deficit hyperactivity disorder (ADHD), predominantly inattentive type F90.0 and Other reactions to severe stress F43.[address] [address] 12/04/2024 Karen Emery Attention deficit hyperactivity disorder (ADHD), predominantly inattentive type F90.0 [facility] [address] [address] 12/12/2024 BROOKLYNCL WAREDEISY-MAY Attention deficit hyperactivity disorder (ADHD), predominantly inattentive type F90.0 and Other reactions to severe stress F43.[address] [address] 12/18/2024 Karen Emery Anxiety disorder, unspecified F41.9 [facility] [address] [address] 12/19/2024 BROOKLYN ZAMUDIO-MAY Attention deficit hyperactivity disorder (ADHD), predominantly inattentive type F90.0 and Other reactions to severe stress F43.89 [facility] [address] [address] 12/26/2024 BROOKLYNCL WAREDEISY-MAY Attention deficit hyperactivity disorder (ADHD), predominantly inattentive type F90.0 and Other reactions to severe stress F43.89 [facility] [address] [address] 01/02/2025 BROOKLYNCL WAREDEISY-MAY Attention deficit hyperactivity disorder (ADHD), predominantly inattentive type F90.0 and Other reactions to severe stress F43.89 [facility] [address] [address] 01/09/2025 BROOKLYN LIZZ-MAY Attention deficit hyperactivity disorder (ADHD), predominantly inattentive type F90.0 and Other reactions to severe stress F43.89 [facility] [address] [address] 01/16/2025 BROOKLYN ZAMUDIO-MAY Attention deficit hyperactivity disorder (ADHD), predominantly inattentive type F90.0 and Other reactions to severe stress F43.89 [facility] [address] [address] 01/19/2025 BROOKLYNCL ZAMUDIO-MAY Attention deficit hyperactivity disorder (ADHD), predominantly inattentive type F90.0 and Other reactions to severe stress F43.89 [facility] [address] [address] 01/30/2025 BROOKLYN ZAMUDIO-MAY Attention deficit hyperactivity disorder (ADHD), predominantly inattentive type F90.0 and Other reactions to severe stress F43.89 [facility] [address] [address] 02/02/2025 SATURNINO SIMPSON Mild episode of recurrent major depressive disorder F33.0 ; Mixed obsessional thoughts and acts F42.2 and Attention deficit hyperactivity disorder (ADHD), predominantly inattentive type F90.0 [facility] [address] [address] 02/06/2025 BROOKLYN ZAMUDIO-MAY Attention deficit hyperactivity disorder (ADHD), predominantly inattentive type F90.0 and Other reactions to severe stress F43.89 [facility] [address] [address] 02/13/2025 BROOKLYN ZAMUDIO-MAY Attention deficit hyperactivity disorder (ADHD), predominantly inattentive type F90.0 and Other reactions to severe stress F43.89 [facility] [address] [address] 02/20/2025 BROOKLYN ZAMUDIO-MAY Attention deficit hyperactivity disorder (ADHD), predominantly inattentive type F90.0 and Other reactions to severe stress F43.89 [facility] [address] [address] 02/26/2025 BROOKLYNCL WAREAULT-MAY Attention deficit hyperactivity disorder (ADHD), predominantly inattentive type F90.0 and Other reactions to severe stress F43.[address] [address] 02/26/2025 Karen Emery Attention deficit hyperactivity disorder (ADHD), predominantly inattentive type F90.0 [facility] [address] [address] 03/05/2025 SATURNINO SIMPSON Mild episode of recurrent major depressive disorder F33.0 ; Mixed obsessional thoughts and acts F42.2 and Attention deficit hyperactivity disorder (ADHD), predominantly inattentive type F90.0 [facility] [address] [address] 03/05/2025 BROOKLYN LIZZ-MAY Attention deficit hyperactivity disorder (ADHD), predominantly inattentive type F90.0 and Other reactions to severe stress F43.89 [facility] [address] [address] 03/12/2025 BROOKLYN LIZZ-DELROY Attention deficit hyperactivity disorder (ADHD), predominantly inattentive type F90.0 and Other reactions to severe stress F43.89 [facility] [address] [address] 03/13/2025 BROOKLYN LIZZ-MAY Attention deficit hyperactivity disorder (ADHD), predominantly inattentive type F90.0 and Other reactions to severe stress F43.89 [facility] [address] [address] 03/19/2025 BROOKLYN LIZZ-MAY Attention deficit hyperactivity disorder (ADHD), predominantly inattentive type F90.0 and Other reactions to severe stress F43.[address] [place] [address] 03/23/2025 SATURNINO SIMPSON Other reactions to severe stress F43.89 [facility] [address] [address] 03/25/2025 BROOKLYN LIZZ-MAY Attention deficit hyperactivity disorder (ADHD), predominantly inattentive type F90.0 and Other reactions to severe stress F43.89 [facility] [address] [address] 04/02/2025 BROOKLYN LIZZ-MAY Attention deficit hyperactivity disorder (ADHD), predominantly inattentive type F90.0 and Other reactions to severe stress F43.89 [facility] [address] [address] 04/02/2025 BROOKLYN ZAMUDIO-MAY Attention deficit hyperactivity disorder (ADHD), predominantly inattentive type F90.0 and Other reactions to severe stress F43.89 [facility] [address] [address] 04/10/2025 BROOKLYN ZAMUDIO-MAY Attention deficit hyperactivity disorder (ADHD), predominantly inattentive type F90.0 and Other reactions to severe stress F43.89 [facility] [address] [address] 04/16/2025 BROOKLYN ZAMUDIO-MAY Attention deficit hyperactivity disorder (ADHD), predominantly inattentive type F90.0 and Other reactions to severe stress F43.89 [facility] [address] [address] 05/01/2025 BROOKLYN ZAMUDIO-MAY Attention deficit hyperactivity disorder (ADHD), predominantly inattentive type F90.0 and Other reactions to severe stress F43.89 [facility] [address] [address] 05/07/2025 BROOKLYN ZAMUDIO-MAY Attention deficit hyperactivity disorder (ADHD), predominantly inattentive type F90.0 and Other reactions to severe stress F43.[address] [address] 05/11/2025 BROOKLYNCL ZAMUDIO-MAY Attention deficit hyperactivity disorder (ADHD), predominantly inattentive type F90.0 ; Other reactions to severe stress F43.89 and Obsessive-compulsive disorder, unspecified F42.9 [facility] [address] [address] 05/14/2025 BROOKLYN ZAMUDIO-MAY Attention deficit hyperactivity disorder (ADHD), predominantly inattentive type F90.0 ; Other reactions to severe stress F43.89 and Obsessive-compulsive disorder, unspecified F42.9 [facility] [address] [address] 05/19/2025 BROOKLYN ZAMUDIO-MAY Attention deficit hyperactivity disorder (ADHD), predominantly inattentive type F90.0 ; Other reactions to severe stress F43.89 and Obsessive-compulsive disorder, unspecified F42.9 [facility] [address] [address] 05/22/2025 BROOKLYN ZAMUDIO-MAY Attention deficit hyperactivity disorder (ADHD), predominantly inattentive type F90.0 ; Other reactions to severe stress F43.89 and Obsessive-compulsive disorder, unspecified F42.9 [facility] [address] [address] 05/26/2025 BROOKLYN ALCARAZ Attention deficit hyperactivity disorder (ADHD), predominantly inattentive type F90.0 ; Other reactions to severe stress F43.89 and Obsessive-compulsive disorder, unspecified F42.9 [facility] [address] [address] 05/27/2025 BROOKLYN ZAMUDIO-MAY Obsessive-compulsive disorder, unspecified F42.9 and Anxiety disorder, unspecified F41.9 [facility] [address] [address] 05/29/2025 BROOKLYN ZAMUDIO-MAY Attention deficit hyperactivity disorder (ADHD), predominantly inattentive type F90.0 ; Other reactions to severe stress F43.89 and Obsessive-compulsive disorder, unspecified F42.9 [facility] [address] [address] 06/02/2025 BROOKLYN ZAMUDIO-MAY Attention deficit hyperactivity disorder (ADHD), predominantly inattentive type F90.0 ; Other reactions to severe stress F43.89 and Obsessive-compulsive disorder, unspecified F42.9 [facility] [address] [address] 06/05/2025 BROOKLYN ZAMUDIO-DELROY Attention deficit hyperactivity disorder (ADHD), predominantly inattentive type F90.0 ; Other reactions to severe stress F43.89 and Obsessive-compulsive disorder, unspecified F42.9 [facility] [address] [id number] 06/12/2025 BROOKLYN ZAMUDIO-MAY Attention deficit hyperactivity disorder (ADHD), predominantly inattentive type F90.0 ; Other reactions to severe stress F43.89 and Obsessive-compulsive disorder, unspecified F42.9 [facility] [address] [address] 06/12/2025 BR[place] ZAMUDIO-MAY Anxiety disorder, unspecified F41.9 ; Mixed obsessional thoughts and acts F42.2 ; Obsessive-compulsive disorder, unspecified F42.9 and Attention deficit hyperactivity disorder (ADHD), predominantly inattentive type F90.0 [facility] [address] [address] 06/15/2025 ALEX ARMENDARIZ Mild episode of recurrent major depressive disorder F33.0 [facility] [address] [place] [address] 06/22/2025 ALEX ARMENDARIZ Mild episode of recurrent major depressive disorder F33.0 [facility] [address] [facility] [address] [place] [address] 06/29/2025 ALEX ARMENDARIZ Mild episode of recurrent major depressive disorder F33.0 [facility] [address] [facility] [address] [place] [address] 2025 ALEX ARMENDARIZ Mild episode of recurrent major depressive disorder F33.0 [facility] [address] [facility] [address] [place] [address] 07/10/2025 ALEX ARMENDARIZ Moderate episode of recurrent major depressive disorder F33.1 and Post traumatic stress disorder F43.10 [facility] [address] [address] 07/13/2025 ALEX ARMENDARIZ Moderate episode of recurrent major depressive disorder F33.1 and Post traumatic stress disorder F43.10 [facility] [address] [address] 07/15/2025 ALEX ARMENDARIZ Moderate episode of recurrent major depressive disorder F33.1 and Post traumatic stress disorder F43.10 [facility] [address] [address] 10/03/2024 SATURNINO SIMPSON [facility] [address] [address] 10/06/2024 SATURNINO SIMPSON [facility] [address] [address] 10/10/2024 Provider Therapy [facility] [place] [address] [place] [address] 10/22/2024 SATURNINO SIMPSON [facility] [address] [address] 11/12/2024 SATURNINO SIMPSON [facility] [place] [address] [address] 11/24/2024 Provider Therapy [facility] [address] [address] 11/26/2024 SATURNINO SIMPSON [facility] [address] [address] 12/01/2024 SATURNINO SIMPSON [facility] [place] [address] [place] [address] 12/01/2024 Provider Therapy [facility] [place] [address] [place] [address] 12/01/2024 Provider Therapy [facility] [address] [place] [address] 12/10/2024 SATURNINO SIMPSON [facility] [place] [address] [place] [address] 12/12/2024 Provider Therapy [facility] [place] [address] [place] [address] 12/12/2024 Provider Therapy [facility] [place] [address] [place] [address] 01/26/2025 Provider Therapy [facility] [place] [address] [place] [address] 03/12/2025 Provider Therapy [facility] [place] [address] [place] [address] 03/19/2025 SATURNINO SIMPSON [facility] [place] [address] [place] [address] 03/23/2025 SATURNINO SIMPSON [facility] [place] [address] [place] [address] 06/01/2025 Provider Therapy [facility] [place] [address] [place] [address] 07/07/2025 Provider Therapy [facility] [address] [place] [address] 07/15/2025 BROOKLYN ALCARAZ [facility] [place] [address] [place] [address] 07/30/2024 SATURNINO SIMPSON [facility] [place] [address] [place] [address] 08/17/2024 SATURNINO SIMPSON [facility] [place] [address] [place] [address] 08/18/2024 SATURNINO SIMPSON [facility] [place] [address] [place] [address] 08/25/2024 SATURNINO SIMPSON [facility] [place] [address] [place] [address] 08/27/2024 SATURNINO SIMPSON [facility] [address] [address] 08/27/2024 SATURNINO SIMPSON [address] [address] 08/28/2024 SATURNINO SIMPSON [facility] [address] [place] [address] 09/24/2024 SATURNINO SIMPSON [facility] [address] [place] [address] 10/22/2024 SATURNINO SIMPSON [facility] [address] [place] [address] 10/28/2024 SATURNINO SIMPSON [facility] [address] [place] [address] 11/27/2024 SATURNINO SIMPSON [facility] [address] [place] [address] 11/27/2024 SATURNINO SIMPSON [facility] [address] [place] [address] 12/17/2024 SATURNINO SIMPSON [facility] [address] [place] [address] 02/18/2025 Karen Emery [facility] [address] [place] [address] 02/26/2025 SATURNINO SIMPSON [facility] [address] [place] [address] 03/16/2025 SATURNINO SIMPSON Assessments Encounter Date Diagnosis (ICD Code) Assessment Notes Treatment Notes Treatment Clinical Notes Section Notes 07/25/2024 Anxiety disorder, unspecified (ICD-10 - F41.9) 07/28/2024 Anxiety disorder, unspecified (ICD-10 - F41.9) 07/25/2024 Anxiety disorder, unspecified (ICD-10 - F41.9) 07/28/2024 Anxiety disorder, unspecified (ICD-10 - F41.9) 07/31/2024 Mild episode of recurrent major depressive disorder (ICD-10 - F33.0) 08/01/2024 Anxiety disorder, unspecified (ICD-10 - F41.9) 08/04/2024 Mild episode of recurrent major depressive disorder (ICD-10 - F33.0) 08/06/2024 Anxiety disorder, unspecified (ICD-10 - F41.9) 08/07/2024 Mild episode of recurrent major depressive disorder (ICD-10 - F33.0) 08/08/2024 Anxiety disorder, unspecified (ICD-10 - F41.9) 08/08/2024 Anxiety disorder, unspecified (ICD-10 - F41.9) 08/10/2024 Mild episode of recurrent major depressive disorder (ICD-10 - F33.0) 08/12/2024 Anxiety disorder, unspecified (ICD-10 - F41.9) 08/18/2024 Attention deficit hyperactivity disorder (ADHD), predominantly inattentive type (ICD-10 - F90.0) 08/19/2024 Anxiety disorder, unspecified (ICD-10 - F41.9) 08/22/2024 Anxiety disorder, unspecified (ICD-10 - F41.9) 08/25/2024 Attention deficit hyperactivity disorder (ADHD), predominantly inattentive type (ICD-10 - F90.0) 08/28/2024 Attention deficit hyperactivity disorder (ADHD), predominantly inattentive type (ICD-10 - F90.0) 08/29/2024 Anxiety disorder, unspecified (ICD-10 - F41.9) 08/25/2024 Mild episode of recurrent major depressive disorder (ICD-10 - F33.0) 09/01/2024 Anxiety disorder, unspecified (ICD-10 - F41.9) 09/16/2024 Anxiety disorder, unspecified (ICD-10 - F41.9) 09/19/2024 Anxiety disorder, unspecified (ICD-10 - F41.9) 09/24/2024 Attention deficit hyperactivity disorder (ADHD), predominantly inattentive type (ICD-10 - F90.0) 09/25/2024 Attention deficit hyperactivity disorder (ADHD), predominantly inattentive type (ICD-10 - F90.0) 09/26/2024 Anxiety disorder, unspecified (ICD-10 - F41.9) 09/23/2024 Anxiety disorder, unspecified (ICD-10 - F41.9) 09/29/2024 Mild episode of recurrent major depressive disorder (ICD-10 - F33.0) 09/30/2024 Anxiety disorder, unspecified (ICD-10 - F41.9) 10/03/2024 Anxiety disorder, unspecified (ICD-10 - F41.9) 10/07/2024 Anxiety disorder, unspecified (ICD-10 - F41.9) 10/10/2024 Anxiety disorder, unspecified (ICD-10 - F41.9) 10/24/2024 Other reactions to severe stress (ICD-10 - F43.89) 10/24/2024 Attention deficit hyperactivity disorder (ADHD), predominantly inattentive type (ICD-10 - F90.0) 10/28/2024 Attention deficit hyperactivity disorder (ADHD), predominantly inattentive type (ICD-10 - F90.0) 10/17/2024 Anxiety disorder, unspecified (ICD-10 - F41.9) 10/31/2024 Attention deficit hyperactivity disorder (ADHD), predominantly inattentive type (ICD-10 - F90.0) 10/31/2024 Mild episode of recurrent major depressive disorder (ICD-10 - F33.0) 11/14/2024 Attention deficit hyperactivity disorder (ADHD), predominantly inattentive type (ICD-10 - F90.0) 11/21/2024 Attention deficit hyperactivity disorder (ADHD), predominantly inattentive type (ICD-10 - F90.0) 11/27/2024 Attention deficit hyperactivity disorder (ADHD), predominantly inattentive type (ICD-10 - F90.0) 11/28/2024 Attention deficit hyperactivity disorder (ADHD), predominantly inattentive type (ICD-10 - F90.0) 12/01/2024 Mild episode of recurrent major depressive disorder (ICD-10 - F33.0) 12/03/2024 Attention deficit hyperactivity disorder (ADHD), predominantly inattentive type (ICD-10 - F90.0) 12/04/2024 Attention deficit hyperactivity disorder (ADHD), predominantly inattentive type (ICD-10 - F90.0) 12/12/2024 Attention deficit hyperactivity disorder (ADHD), predominantly inattentive type (ICD-10 - F90.0) 12/18/2024 Anxiety disorder, unspecified (ICD-10 - F41.9) 12/19/2024 Attention deficit hyperactivity disorder (ADHD), predominantly inattentive type (ICD-10 - F90.0) 12/26/2024 Attention deficit hyperactivity disorder (ADHD), predominantly inattentive type (ICD-10 - F90.0) 01/02/2025 Attention deficit hyperactivity disorder (ADHD), predominantly inattentive type (ICD-10 - F90.0) 01/09/2025 Attention deficit hyperactivity disorder (ADHD), predominantly inattentive type (ICD-10 - F90.0) 01/16/2025 Attention deficit hyperactivity disorder (ADHD), predominantly inattentive type (ICD-10 - F90.0) 01/19/2025 Attention deficit hyperactivity disorder (ADHD), predominantly inattentive type (ICD-10 - F90.0) 01/30/2025 Attention deficit hyperactivity disorder (ADHD), predominantly inattentive type (ICD-10 - F90.0) 02/02/2025 Mild episode of recurrent major depressive disorder (ICD-10 - F33.0) 02/06/2025 Attention deficit hyperactivity disorder (ADHD), predominantly inattentive type (ICD-10 - F90.0) 02/13/2025 Attention deficit hyperactivity disorder (ADHD), predominantly inattentive type (ICD-10 - F90.0) 02/20/2025 Attention deficit hyperactivity disorder (ADHD), predominantly inattentive type (ICD-10 - F90.0) 02/26/2025 Attention deficit hyperactivity disorder (ADHD), predominantly inattentive type (ICD-10 - F90.0) 02/26/2025 Attention deficit hyperactivity disorder (ADHD), predominantly inattentive type (ICD-10 - F90.0) 03/05/2025 Attention deficit hyperactivity disorder (ADHD), predominantly inattentive type (ICD-10 - F90.0) 03/05/2025 Mild episode of recurrent major depressive disorder (ICD-10 - F33.0) 03/12/2025 Attention deficit hyperactivity disorder (ADHD), predominantly inattentive type (ICD-10 - F90.0) 03/13/2025 Attention deficit hyperactivity disorder (ADHD), predominantly inattentive type (ICD-10 - F90.0) 03/19/2025 Attention deficit hyperactivity disorder (ADHD), predominantly inattentive type (ICD-10 - F90.0) 03/23/2025 Other reactions to severe stress (ICD-10 - F43.89) 03/25/2025 Attention deficit hyperactivity disorder (ADHD), predominantly inattentive type (ICD-10 - F90.0) 04/02/2025 Attention deficit hyperactivity disorder (ADHD), predominantly inattentive type (ICD-10 - F90.0) 04/02/2025 Attention deficit hyperactivity disorder (ADHD), predominantly inattentive type (ICD-10 - F90.0) 04/10/2025 Attention deficit hyperactivity disorder (ADHD), predominantly inattentive type (ICD-10 - F90.0) 04/16/2025 Attention deficit hyperactivity disorder (ADHD), predominantly inattentive type (ICD-10 - F90.0) 05/01/2025 Attention deficit hyperactivity disorder (ADHD), predominantly inattentive type (ICD-10 - F90.0) 05/07/2025 Attention deficit hyperactivity disorder (ADHD), predominantly inattentive type (ICD-10 - F90.0) 05/11/2025 Attention deficit hyperactivity disorder (ADHD), predominantly inattentive type (ICD-10 - F90.0) 05/14/2025 Attention deficit hyperactivity disorder (ADHD), predominantly inattentive type (ICD-10 - F90.0) 05/19/2025 Attention deficit hyperactivity disorder (ADHD), predominantly inattentive type (ICD-10 - F90.0) 05/22/2025 Attention deficit hyperactivity disorder (ADHD), predominantly inattentive type (ICD-10 - F90.0) 05/26/2025 Attention deficit hyperactivity disorder (ADHD), predominantly inattentive type (ICD-10 - F90.0) 05/27/2025 Obsessive-compul sive disorder, unspecified (ICD-10 - F42.9) 05/29/2025 Attention deficit hyperactivity disorder (ADHD), predominantly inattentive type (ICD-10 - F90.0) 06/02/2025 Attention deficit hyperactivity disorder (ADHD), predominantly inattentive type (ICD-10 - F90.0) 06/05/2025 Attention deficit hyperactivity disorder (ADHD), predominantly inattentive type (ICD-10 - F90.0) 06/12/2025 Attention deficit hyperactivity disorder (ADHD), predominantly inattentive type (ICD-10 - F90.0) 06/12/2025 Anxiety disorder, unspecified (ICD-10 - F41.9) 06/15/2025 Mild episode of recurrent major depressive disorder (ICD-10 - F33.0) 06/22/2025 Mild episode of recurrent major depressive disorder (ICD-10 - F33.0) 06/29/2025 Mild episode of recurrent major depressive disorder (ICD-10 - F33.0) 2025 Mild episode of recurrent major depressive disorder (ICD-10 - F33.0) 07/10/2025 Moderate episode of recurrent major depressive disorder (ICD-10 - F33.1) 07/10/2025 Post traumatic stress disorder (ICD-10 - F43.10) 07/13/2025 Moderate episode of recurrent major depressive disorder (ICD-10 - F33.1) 07/15/2025 Moderate episode of recurrent major depressive disorder (ICD-10 - F33.1) 07/15/2025 Post traumatic stress disorder (ICD-10 - F43.10) 06/05/2025 Other reactions to severe stress (ICD-10 - F43.89) 06/12/2025 Other reactions to severe stress (ICD-10 - F43.89) 07/13/2025 Post traumatic stress disorder (ICD-10 - F43.10) 06/12/2025 Mixed obsessional thoughts and acts (ICD-10 - F42.2) 05/29/2025 Other reactions to severe stress (ICD-10 - F43.89) 06/02/2025 Other reactions to severe stress (ICD-10 - F43.89) 05/27/2025 Anxiety disorder, unspecified (ICD-10 - F41.9) 05/22/2025 Other reactions to severe stress (ICD-10 - F43.89) 05/26/2025 Other reactions to severe stress (ICD-10 - F43.89) 05/14/2025 Other reactions to severe stress (ICD-10 - F43.89) 05/19/2025 Other reactions to severe stress (ICD-10 - F43.89) 03/12/2025 Other reactions to severe stress (ICD-10 - F43.89) 05/11/2025 Other reactions to severe stress (ICD-10 - F43.89) 05/07/2025 Other reactions to severe stress (ICD-10 - F43.89) 05/01/2025 Other reactions to severe stress (ICD-10 - F43.89) 04/16/2025 Other reactions to severe stress (ICD-10 - F43.89) 04/10/2025 Other reactions to severe stress (ICD-10 - F43.89) 04/02/2025 Other reactions to severe stress (ICD-10 - F43.89) 04/02/2025 Other reactions to severe stress (ICD-10 - F43.89) 03/25/2025 Other reactions to severe stress (ICD-10 - F43.89) 03/19/2025 Other reactions to severe stress (ICD-10 - F43.89) 03/13/2025 Other reactions to severe stress (ICD-10 - F43.89) 03/05/2025 Mixed obsessional thoughts and acts (ICD-10 - F42.2) 03/05/2025 Other reactions to severe stress (ICD-10 - F43.89) 02/26/2025 Other reactions to severe stress (ICD-10 - F43.89) 02/20/2025 Other reactions to severe stress (ICD-10 - F43.89) 02/13/2025 Other reactions to severe stress (ICD-10 - F43.89) 12/03/2024 Other reactions to severe stress (ICD-10 - F43.89) 02/06/2025 Other reactions to severe stress (ICD-10 - F43.89) 02/02/2025 Mixed obsessional thoughts and acts (ICD-10 - F42.2) 01/30/2025 Other reactions to severe stress (ICD-10 - F43.89) 01/19/2025 Other reactions to severe stress (ICD-10 - F43.89) 01/16/2025 Other reactions to severe stress (ICD-10 - F43.89) 01/09/2025 Other reactions to severe stress (ICD-10 - F43.89) 01/02/2025 Other reactions to severe stress (ICD-10 - F43.89) 12/26/2024 Other reactions to severe stress (ICD-10 - F43.89) 12/19/2024 Other reactions to severe stress (ICD-10 - F43.89) 12/12/2024 Other reactions to severe stress (ICD-10 - F43.89) 12/01/2024 Mixed obsessional thoughts and acts (ICD-10 - F42.2) 11/28/2024 Other reactions to severe stress (ICD-10 - F43.89) 11/21/2024 Other reactions to severe stress (ICD-10 - F43.89) 09/29/2024 Mixed obsessional thoughts and acts (ICD-10 - F42.2) 11/14/2024 Other reactions to severe stress (ICD-10 - F43.89) 10/31/2024 Mixed obsessional thoughts and acts (ICD-10 - F42.2) 10/17/2024 Obsessive-compul sive disorder, unspecified (ICD-10 - F42.9) 10/31/2024 Other reactions to severe stress (ICD-10 - F43.89) 10/10/2024 Obsessive-compul sive disorder, unspecified (ICD-10 - F42.9) 10/07/2024 Obsessive-compul sive disorder, unspecified (ICD-10 - F42.9) 10/03/2024 Obsessive-compul sive disorder, unspecified (ICD-10 - F42.9) 09/30/2024 Obsessive-compul sive disorder, unspecified (ICD-10 - F42.9) 09/23/2024 Obsessive-compul sive disorder, unspecified (ICD-10 - F42.9) 09/26/2024 Obsessive-compul sive disorder, unspecified (ICD-10 - F42.9) 09/19/2024 Obsessive-compul sive disorder, unspecified (ICD-10 - F42.9) 09/16/2024 Obsessive-compul sive disorder, unspecified (ICD-10 - F42.9) 09/01/2024 Obsessive-compul sive disorder, unspecified (ICD-10 - F42.9) 08/29/2024 Obsessive-compul sive disorder, unspecified (ICD-10 - F42.9) 08/22/2024 Obsessive-compul sive disorder, unspecified (ICD-10 - F42.9) 08/07/2024 Mixed obsessional thoughts and acts (ICD-10 - F42.2) 08/25/2024 Mixed obsessional thoughts and acts (ICD-10 - F42.2) 08/19/2024 Obsessive-compul sive disorder, unspecified (ICD-10 - F42.9) 08/12/2024 Obsessive-compul sive disorder, unspecified (ICD-10 - F42.9) 08/08/2024 Obsessive-compul sive disorder, unspecified (ICD-10 - F42.9) 08/08/2024 Obsessive-compul sive disorder, unspecified (ICD-10 - F42.9) 08/06/2024 Obsessive-compul sive disorder, unspecified (ICD-10 - F42.9) 07/31/2024 Mixed obsessional thoughts and acts (ICD-10 - F42.2) 08/04/2024 Mixed obsessional thoughts and acts (ICD-10 - F42.2) 08/01/2024 Obsessive-compul sive disorder, unspecified (ICD-10 - F42.9) 07/28/2024 Obsessive-compul sive disorder, unspecified (ICD-10 - F42.9) 07/25/2024 Obsessive-compul sive disorder, unspecified (ICD-10 - F42.9) 07/28/2024 Mixed obsessional thoughts and acts (ICD-10 - F42.2) 07/25/2024 Mixed obsessional thoughts and acts (ICD-10 - F42.2) 07/25/2024 Mild episode of recurrent major depressive disorder (ICD-10 - F33.0) 07/28/2024 Mild episode of recurrent major depressive disorder (ICD-10 - F33.0) 07/25/2024 Attention deficit hyperactivity disorder (ADHD), predominantly inattentive type (ICD-10 - F90.0) 07/28/2024 Attention deficit hyperactivity disorder (ADHD), predominantly inattentive type (ICD-10 - F90.0) 08/01/2024 Attention deficit hyperactivity disorder (ADHD), predominantly inattentive type (ICD-10 - F90.0) 07/31/2024 Attention deficit hyperactivity disorder (ADHD), predominantly inattentive type (ICD-10 - F90.0) 08/04/2024 Attention deficit hyperactivity disorder (ADHD), predominantly inattentive type (ICD-10 - F90.0) 08/06/2024 Attention deficit hyperactivity disorder (ADHD), predominantly inattentive type (ICD-10 - F90.0) 08/07/2024 Attention deficit hyperactivity disorder (ADHD), predominantly inattentive type (ICD-10 - F90.0) 08/08/2024 Attention deficit hyperactivity disorder (ADHD), predominantly inattentive type (ICD-10 - F90.0) 08/08/2024 Attention deficit hyperactivity disorder (ADHD), predominantly inattentive type (ICD-10 - F90.0) 08/12/2024 Attention deficit hyperactivity disorder (ADHD), predominantly inattentive type (ICD-10 - F90.0) 08/19/2024 Attention deficit hyperactivity disorder (ADHD), predominantly inattentive type (ICD-10 - F90.0) 08/22/2024 Attention deficit hyperactivity disorder (ADHD), predominantly inattentive type (ICD-10 - F90.0) 08/29/2024 Attention deficit hyperactivity disorder (ADHD), predominantly inattentive type (ICD-10 - F90.0) 09/01/2024 Attention deficit hyperactivity disorder (ADHD), predominantly inattentive type (ICD-10 - F90.0) 08/25/2024 Attention deficit hyperactivity disorder (ADHD), predominantly inattentive type (ICD-10 - F90.0) 09/16/2024 Attention deficit hyperactivity disorder (ADHD), predominantly inattentive type (ICD-10 - F90.0) 09/19/2024 Attention deficit hyperactivity disorder (ADHD), predominantly inattentive type (ICD-10 - F90.0) 09/26/2024 Attention deficit hyperactivity disorder (ADHD), predominantly inattentive type (ICD-10 - F90.0) 09/23/2024 Attention deficit hyperactivity disorder (ADHD), predominantly inattentive type (ICD-10 - F90.0) 09/29/2024 Attention deficit hyperactivity disorder (ADHD), predominantly inattentive type (ICD-10 - F90.0) 09/30/2024 Attention deficit hyperactivity disorder (ADHD), predominantly inattentive type (ICD-10 - F90.0) 10/03/2024 Attention deficit hyperactivity disorder (ADHD), predominantly inattentive type (ICD-10 - F90.0) 10/07/2024 Attention deficit hyperactivity disorder (ADHD), predominantly inattentive type (ICD-10 - F90.0) 10/10/2024 Attention deficit hyperactivity disorder (ADHD), predominantly inattentive type (ICD-10 - F90.0) 10/17/2024 Attention deficit hyperactivity disorder (ADHD), predominantly inattentive type (ICD-10 - F90.0) 10/31/2024 Attention deficit hyperactivity disorder (ADHD), predominantly inattentive type (ICD-10 - F90.0) 12/01/2024 Attention deficit hyperactivity disorder (ADHD), predominantly inattentive type (ICD-10 - F90.0) 02/02/2025 Attention deficit hyperactivity disorder (ADHD), predominantly inattentive type (ICD-10 - F90.0) 03/05/2025 Attention deficit hyperactivity disorder (ADHD), predominantly inattentive type (ICD-10 - F90.0) 05/11/2025 Obsessive-compul sive disorder, unspecified (ICD-10 - F42.9) 05/19/2025 Obsessive-compul sive disorder, unspecified (ICD-10 - F42.9) 05/14/2025 Obsessive-compul sive disorder, unspecified (ICD-10 - F42.9) 05/22/2025 Obsessive-compul sive disorder, unspecified (ICD-10 - F42.9) 05/26/2025 Obsessive-compul sive disorder, unspecified (ICD-10 - F42.9) 05/29/2025 Obsessive-compul sive disorder, unspecified (ICD-10 - F42.9) 06/02/2025 Obsessive-compul sive disorder, unspecified (ICD-10 - F42.9) 06/12/2025 Obsessive-compul sive disorder, unspecified (ICD-10 - F42.9) 06/12/2025 Obsessive-compul sive disorder, unspecified (ICD-10 - F42.9) 06/05/2025 Obsessive-compul sive disorder, unspecified (ICD-10 - F42.9) 06/12/2025 Attention deficit hyperactivity disorder (ADHD), predominantly inattentive type (ICD-10 - F90.0) 07/28/2024 Attention deficit hyperactivity disorder (ADHD), predominantly inattentive type (ICD-10 - F90.0) 07/25/2024 Attention deficit hyperactivity disorder (ADHD), predominantly inattentive type (ICD-10 - F90.0) 07/31/2024 Other Medical Decision Making: Problem Addressed # 1: MDD Status of Problem 1: chronic, unstable Interventions: continue zoloft 50mg, DECREASE wellbutrin 300MG --> 150MG INCREASE trazodone 100mg --> 200mg QHS Prescription Drug Rationale: patient having sleep issues Problem Addressed # 2: OCD Status of Problem 2: chronic, unstable Interventions: continue zoloft 50mg, STOP atarax 25mg as needed for sleep at night Prescription Drug Rationale: proven efficacy and tolerability Problem Addressed # 3: ADHD Status of Problem 2: chronic, unstable Interventions: continue methylphenidate LA 30mg Prescription Drug Rationale: patient complaining of symptoms Standard precautions given. Reviewed risks and benefits. Patient competent to engage in treatment planning and consented to treatment. Discussed the risks and benefits, potential side effects and adverse reactions to SSRI antidepressant medication. Including but not limited to nausea, GI upset, dizziness, headache, sexual side effects, serotonin syndrome, clinical worsening, [place] and suicidality. Patient Instructions: Instructed to seek immediate care for suicidal and/or homicidal ideation. Medication adherence instructions given including importance of taking medication daily, informing provider prior to any unplanned discontinuation of treatment, and continuing medication even if feeling better. Information given about medication treatment outcomes and common side effects Continue in regular therapy. 08/04/2024 Other Medical Decision Making: Problem Addressed # 1: MDD Status of Problem 1: chronic, unstable Interventions: continue zoloft 50mg, STOP wellbutrin 150MG STOP trazodone 200mg QHS Prescription Drug Rationale: patient having sleep issues Problem Addressed # 2: OCD Status of Problem 2: chronic, unstable Interventions: continue zoloft 50mg, STOP atarax 25mg as needed for sleep at night Prescription Drug Rationale: proven efficacy and tolerability Problem Addressed # 3: ADHD Status of Problem 2: chronic, unstable Interventions: continue methylphenidate LA 30mg Prescription Drug Rationale: patient complaining of symptoms Problem Addressed # 4: Sleep Status of Problem 2: acute, unstable Interventions: INITIATE seroquel 25mg Prescription Drug Rationale: patient not sleeping Standard precautions given. Reviewed risks and benefits. Patient competent to engage in treatment planning and consented to treatment. Discussed the risks and benefits, potential side effects and adverse reactions to SSRI antidepressant medication. Including but not limited to nausea, GI upset, dizziness, headache, sexual side effects, serotonin syndrome, clinical worsening, orville and suicidality. Patient Instructions: Instructed to seek immediate care for suicidal and/or homicidal ideation. Medication adherence instructions given including importance of taking medication daily, informing provider prior to any unplanned discontinuation of treatment, and continuing medication even if feeling better. Information given about medication treatment outcomes and common side effects Continue in regular therapy. 08/07/2024 Other Medical Decision Making: Problem Addressed # 1: MDD Status of Problem 1: chronic, unstable Interventions: continue zoloft 50mg Prescription Drug Rationale: patient having sleep issues Problem Addressed # 2: OCD Status of Problem 2: chronic, unstable Interventions: continue zoloft 50mg, Prescription Drug Rationale: proven efficacy and tolerability Problem Addressed # 3: ADHD Status of Problem 2: chronic, unstable Interventions: continue methylphenidate LA 30mg Prescription Drug Rationale: patient complaining of symptoms Problem Addressed # 4: Sleep Status of Problem 2: acute, unstable Interventions: continue seroquel 25mg-50mg Prescription Drug Rationale: patient not sleeping Past medication: wellbutrin, trazodone - ineffective for sleep, atarax - ineffective for sleep and anxiety Standard precautions given. Reviewed risks and benefits. Patient competent to engage in treatment planning and consented to treatment. Discussed the risks and benefits, potential side effects and adverse reactions to SSRI antidepressant medication. Including but not limited to nausea, GI upset, dizziness, headache, sexual side effects, serotonin syndrome, clinical worsening, orville and suicidality. Patient Instructions: Instructed to seek immediate care for suicidal and/or homicidal ideation. Medication adherence instructions given including importance of taking medication daily, informing provider prior to any unplanned discontinuation of treatment, and continuing medication even if feeling better. Information given about medication treatment outcomes and common side effects Continue in regular therapy. 08/25/2024 Other Medical Decision Making: Problem Addressed # 1: MDD Status of Problem 1: chronic, stable Interventions: continue zoloft 50mg Prescription Drug Rationale: patient having sleep issues Problem Addressed # 2: OCD Status of Problem 2: chronic, stable Interventions: continue zoloft 50mg, Prescription Drug Rationale: proven efficacy and tolerability Problem Addressed # 3: ADHD Status of Problem 2: chronic, unstable Interventions: INCREASE methylphenidate LA 30mg --> 50mg Prescription Drug Rationale: patient complaining of symptoms Problem Addressed # 4: Sleep Status of Problem 2: acute, stable Interventions: continue seroquel 50mg Prescription Drug Rationale: patient not sleeping Past medication: wellbutrin, trazodone - ineffective for sleep, atarax - ineffective for sleep and anxiety Standard precautions given. Reviewed risks and benefits. Patient competent to engage in treatment planning and consented to treatment. Discussed the risks and benefits, potential side effects and adverse reactions to SSRI antidepressant medication. Including but not limited to nausea, GI upset, dizziness, headache, sexual side effects, serotonin syndrome, clinical worsening, orville and suicidality. Patient Instructions: Instructed to seek immediate care for suicidal and/or homicidal ideation. Medication adherence instructions given including importance of taking medication daily, informing provider prior to any unplanned discontinuation of treatment, and continuing medication even if feeling better. Information given about medication treatment outcomes and common side effects Continue in regular therapy. 09/29/2024 Other Medical Decision Making: Problem Addressed # 1: MDD Status of Problem 1: chronic, stable Interventions: continue zoloft 50mg Prescription Drug Rationale: patient having sleep issues Problem Addressed # 2: OCD Status of Problem 2: chronic, stable Interventions: continue zoloft 50mg, Prescription Drug Rationale: proven efficacy and tolerability Problem Addressed # 3: ADHD Status of Problem 2: chronic, unstable Interventions: SWITCH methylphenidate LA 50mg --> adderall XR 25MG Prescription Drug Rationale: patient complaining of symptoms Problem Addressed # 4: Sleep Status of Problem 2: acute, stable Interventions: continue seroquel 50mg Prescription Drug Rationale: patient not sleeping Past medication: wellbutrin, trazodone - ineffective for sleep, atarax - ineffective for sleep and anxiety Standard precautions given. Reviewed risks and benefits. Patient competent to engage in treatment planning and consented to treatment. Discussed the risks and benefits, potential side effects and adverse reactions to SSRI antidepressant medication. Including but not limited to nausea, GI upset, dizziness, headache, sexual side effects, serotonin syndrome, clinical worsening, orville and suicidality. Patient Instructions: Instructed to seek immediate care for suicidal and/or homicidal ideation. Medication adherence instructions given including importance of taking medication daily, informing provider prior to any unplanned discontinuation of treatment, and continuing medication even if feeling better. Information given about medication treatment outcomes and common side effects Continue in regular therapy. 10/31/2024 Other Medical Decision Making: Problem Addressed # 1: MDD Status of Problem 1: chronic, stable Interventions: continue zoloft 50mg Prescription Drug Rationale: patient having sleep issues Problem Addressed # 2: OCD Status of Problem 2: chronic, stable Interventions: continue zoloft 50mg, Prescription Drug Rationale: proven efficacy and tolerability Problem Addressed # 3: ADHD Status of Problem 2: chronic, unstable Interventions: continue adderall XR 25MG Prescription Drug Rationale: patient complaining of symptoms Problem Addressed # 4: Sleep Status of Problem 2: acute, stable Interventions: continue seroquel 50mg Prescription Drug Rationale: patient not sleeping Past medication: wellbutrin, trazodone - ineffective for sleep, atarax - ineffective for sleep and anxiety Standard precautions given. Reviewed risks and benefits. Patient competent to engage in treatment planning and consented to treatment. Discussed the risks and benefits, potential side effects and adverse reactions to SSRI antidepressant medication. Including but not limited to nausea, GI upset, dizziness, headache, sexual side effects, serotonin syndrome, clinical worsening, orville and suicidality. Reviewed risks specific to treatment with stimulant medication, including possible increase in cardiovascular events leading to sudden and lowering of seizure threshold, particularly among individuals with a known history of cardiac problems or, in the case of seizure risk, having previous evidence of a seizure disorder. Discussed inability to provide early refills, and ability to request urine tox screen as a result of being prescribed a controlled substance. Patient informed that evidence of misuse of medication will result in discontinuation of treatment. Patient agreeable to terms and consented to treatment. Discussed the risks and benefits, potential side effects and adverse reactions to antipsychotic medications. Including but not limited to common side effects, sedation, do not drive if drowsy, orthostatic hypotension/falls , metabolic effects, EPS, Tardive Dyskinesia, neutropenia/blood dyscrasias, cardiac risks (QTc prolongation), risk of in dementia. Importance of regular visits for AIMS testing. Patient Instructions: Instructed to seek immediate care for suicidal and/or homicidal ideation. Medication adherence instructions given including importance of taking medication daily, informing provider prior to any unplanned discontinuation of treatment, and continuing medication even if feeling better. Information given about medication treatment outcomes and common side effects Continue in regular therapy. 12/01/2024 Other Medical Decision Making: Problem Addressed # 1: MDD Status of Problem 1: chronic, stable Interventions: continue zoloft 50mg Prescription Drug Rationale: patient having sleep issues Problem Addressed # 2: OCD Status of Problem 2: chronic, stable Interventions: continue zoloft 50mg, Prescription Drug Rationale: proven efficacy and tolerability Problem Addressed # 3: ADHD Status of Problem 2: chronic, unstable Interventions: continue adderall XR 25MG Prescription Drug Rationale: patient complaining of symptoms Problem Addressed # 4: Sleep Status of Problem 2: acute, stable Interventions: continue seroquel 50mg Prescription Drug Rationale: patient not sleeping Problem Addressed # 5: Anxiety Status of Problem 2: acute, unstable Interventions: INITIATE propranolol 10mg PRN Prescription Drug Rationale: physical symptoms of anxiety Past medication: wellbutrin, trazodone - ineffective for sleep, atarax - ineffective for sleep and anxiety Standard precautions given. Reviewed risks and benefits. Patient competent to engage in treatment planning and consented to treatment. Discussed the risks and benefits, potential side effects and adverse reactions to SSRI antidepressant medication. Including but not limited to nausea, GI upset, dizziness, headache, sexual side effects, serotonin syndrome, clinical worsening, orville and suicidality. Discussed the risks and benefits, potential side effects and adverse reactions to blood pressure medications for psychiatric use. (Clonidine, guanfacine, prazosin or propranolol). Including but not limited to risk of hypotension, syncope, falls, dizziness, headaches, sedation, do not drive or operate machinery if sedated. Discussed indication and off label usage (if applicable). Reviewed risks specific to treatment with stimulant medication, including possible increase in cardiovascular events leading to sudden and lowering of seizure threshold, particularly among individuals with a known history of cardiac problems or, in the case of seizure risk, having previous evidence of a seizure disorder. Discussed inability to provide early refills, and ability to request urine tox screen as a result of being prescribed a controlled substance. Patient informed that evidence of misuse of medication will result in discontinuation of treatment. Patient agreeable to terms and consented to treatment. Discussed the risks and benefits, potential side effects and adverse reactions to antipsychotic medications. Including but not limited to common side effects, sedation, do not drive if drowsy, orthostatic hypotension/falls , metabolic effects, EPS, Tardive Dyskinesia, neutropenia/blood dyscrasias, cardiac risks (QTc prolongation), risk of in dementia. Importance of regular visits for AIMS testing. Patient Instructions: Instructed to seek immediate care for suicidal and/or homicidal ideation. Medication adherence instructions given including importance of taking medication daily, informing provider prior to any unplanned discontinuation of treatment, and continuing medication even if feeling better. Information given about medication treatment outcomes and common side effects Continue in regular therapy. 02/02/2025 Other Medical Decision Making: Problem Addressed # 1: MDD Status of Problem 1: chronic, stable Interventions: nothing Prescription Drug Rationale: patient stopped all medication and does not want to re-start Problem Addressed # 2: OCD Status of Problem 2: chronic, stable Interventions: nothing Prescription Drug Rationale: patient stopped all medication and does not want to re-start Problem Addressed # 3: ADHD Status of Problem 2: chronic, unstable Interventions: continue adderall XR 25MG Prescription Drug Rationale: patient complaining of symptoms Problem Addressed # 4: Sleep Status of Problem 2: acute, stable Interventions: nothing Prescription Drug Rationale: patient stopped all medication and does not want to re-start Problem Addressed # 5: Anxiety Status of Problem 2: acute, unstable Interventions: nothing Prescription Drug Rationale: patient stopped all medication and does not want to re-start Past medication: wellbutrin, trazodone - ineffective for sleep, atarax - ineffective for sleep and anxiety Standard precautions given. Reviewed risks and benefits. Patient competent to engage in treatment planning and consented to treatment. Discussed the risks and benefits, potential side effects and adverse reactions to SSRI antidepressant medication. Including but not limited to nausea, GI upset, dizziness, headache, sexual side effects, serotonin syndrome, clinical worsening, orville and suicidality. Discussed the risks and benefits, potential side effects and adverse reactions to blood pressure medications for psychiatric use. (Clonidine, guanfacine, prazosin or propranolol). Including but not limited to risk of hypotension, syncope, falls, dizziness, headaches, sedation, do not drive or operate machinery if sedated. Discussed indication and off label usage (if applicable). Reviewed risks specific to treatment with stimulant medication, including possible increase in cardiovascular events leading to sudden and lowering of seizure threshold, particularly among individuals with a known history of cardiac problems or, in the case of seizure risk, having previous evidence of a seizure disorder. Discussed inability to provide early refills, and ability to request urine tox screen as a result of being prescribed a controlled substance. Patient informed that evidence of misuse of medication will result in discontinuation of treatment. Patient agreeable to terms and consented to treatment. Discussed the risks and benefits, potential side effects and adverse reactions to antipsychotic medications. Including but not limited to common side effects, sedation, do not drive if drowsy, orthostatic hypotension/falls , metabolic effects, EPS, Tardive Dyskinesia, neutropenia/blood dyscrasias, cardiac risks (QTc prolongation), risk of in dementia. Importance of regular visits for AIMS testing. Patient Instructions: Instructed to seek immediate care for suicidal and/or homicidal ideation. Medication adherence instructions given including importance of taking medication daily, informing provider prior to any unplanned discontinuation of treatment, and continuing medication even if feeling better. Information given about medication treatment outcomes and common side effects Continue in regular therapy. 03/05/2025 Other Medical Decision Making: Problem Addressed # 1: MDD Status of Problem 1: chronic, stable Interventions: nothing Prescription Drug Rationale: patient stopped all medication and does not want to re-start Problem Addressed # 2: OCD Status of Problem 2: chronic, stable Interventions: nothing Prescription Drug Rationale: patient stopped all medication and does not want to re-start Problem Addressed # 3: ADHD Status of Problem 2: chronic, unstable Interventions: continue adderall XR 25MG Prescription Drug Rationale: patient complaining of symptoms Problem Addressed # 4: Sleep Status of Problem 2: acute, stable Interventions: nothing Prescription Drug Rationale: patient stopped all medication and does not want to re-start Problem Addressed # 5: Anxiety Status of Problem 2: acute, unstable Interventions: nothing Prescription Drug Rationale: patient stopped all medication and does not want to re-start Past medication: wellbutrin, trazodone - ineffective for sleep, atarax - ineffective for sleep and anxiety Standard precautions given. Reviewed risks and benefits. Patient competent to engage in treatment planning and consented to treatment. Discussed the risks and benefits, potential side effects and adverse reactions to SSRI antidepressant medication. Including but not limited to nausea, GI upset, dizziness, headache, sexual side effects, serotonin syndrome, clinical worsening, orville and suicidality. Discussed the risks and benefits, potential side effects and adverse reactions to blood pressure medications for psychiatric use. (Clonidine, guanfacine, prazosin or propranolol). Including but not limited to risk of hypotension, syncope, falls, dizziness, headaches, sedation, do not drive or operate machinery if sedated. Discussed indication and off label usage (if applicable). Reviewed risks specific to treatment with stimulant medication, including possible increase in cardiovascular events leading to sudden and lowering of seizure threshold, particularly among individuals with a known history of cardiac problems or, in the case of seizure risk, having previous evidence of a seizure disorder. Discussed inability to provide early refills, and ability to request urine tox screen as a result of being prescribed a controlled substance. Patient informed that evidence of misuse of medication will result in discontinuation of treatment. Patient agreeable to terms and consented to treatment. Discussed the risks and benefits, potential side effects and adverse reactions to antipsychotic medications. Including but not limited to common side effects, sedation, do not drive if drowsy, orthostatic hypotension/falls , metabolic effects, EPS, Tardive Dyskinesia, neutropenia/blood dyscrasias, cardiac risks (QTc prolongation), risk of in dementia. Importance of regular visits for AIMS testing. Patient Instructions: Instructed to seek immediate care for suicidal and/or homicidal ideation. Medication adherence instructions given including importance of taking medication daily, informing provider prior to any unplanned discontinuation of treatment, and continuing medication even if feeling better. Information given about medication treatment outcomes and common side effects Continue in regular therapy. Plan Of Treatment Next Appt Details Provider Name:ALEX ARMENDARIZ, 06/2025 06:00:00 PM, [address], [place], [address], Insurance Providers Payer Name Payer Address Payer Phone Subscriber Number Group Number Insured Name Patient Relationship to Insured Coverage Start Date Coverage End Date [facility] - HMO [address] [place] [phone] [id number] EvelyneYuni marks Self - patient is the insured [address] [facility] - HMO [address] [address] [place] [address] [id number] EvelyneYuni marks Self - patient is the insured 3 Medical (General) History Medical History History ICD Code Polycystic ovary syndrome or al contraceptive to regulate, no allergies, albuterol inhaler for when allergies are increased mild asthma vitamin D deficiency secondary ammenorrhea
--- OUTSIDE RECORDS SUMMARY | 2025-07-24 10:15 | XMS_ITS | Clinical Summary ---
Author Organization [facility] Address [address] [place] [address] Phone Care Team Providers Care Owner Operator Name Role Phone Yuni Anaya MD Primary Care Provider Yuni Anaya MD Unavailable [phone] Medications * This document contains information received [...] to complete this topic Insurance Care Teams Owner Operator Relationship Specialty Start Date End Date Yuni Anaya MD [address] [place] [id number] PCP - General 08/10/23 Yuni Anaya MD [address] [place] [id number] PCP - Clinical PCP 08/10/23
[2025-07-24 10:21] LABS: Alanine Aminotransferase 20 U/L (0-31); Albumin Level 4.2 g/dL (3.5-5.0); Alkaline Phosphatase 43 U/L (39-117); Anion Gap 13 (12-20); Aspartate Amino Transferase 18 U/L (5-31); Blood Urea Nitrogen 10 mg/dL (9-16); Calcium 9.2 mg/dL (8.4-10.2); Carbon Dioxide 25 mmol/L (22-29); Chloride 109 mmol/L (96-108); Estimated Glomerular Filt Rate > 60; Potassium 4.6 mmol/L (3.3-5.1); Sodium 142 mmol/L (135-145); Total Protein 6.9 g/dL (6.5-8.0)
[2025-07-24 10:40] LABS: Folate 18.9 ng/mL (> or = 4.0); Vitamin B12 841 pg/mL (200-900)
== END 2025-07-24 09:07 | disposition home or self-care (01) ==
LOC: HO.LAB 09:06
PROVIDERS: Visit Provider Clinical Nurse Specialist Psychiatric/Mental Health
DX: F33.2 Major depressive disorder, recurrent severe without psychotic features (principal); R00.0 Tachycardia, unspecified; E55.9 Vitamin D deficiency, unspecified; G47.10 Hypersomnia, unspecified
CPT/HCPCS: 36415; 80053; 82306; 82607; 82746; 84443; 85025; 93005

== ENCOUNTER → 2025-07-24 09:11 | Outpatient (BNV) | payer OTHER, MEDICAID, SELFPAY | PROVIDERS: Visit Provider Internal Medicine Cardiovascular Disease | DX: R00.0 Tachycardia, unspecified (principal) | CPT/HCPCS: 93010 ==

== ENCOUNTER 2025-07-28 11:07 | Outpatient (REF) | payer OTHER, MEDICAID, SELFPAY ==
--- OUTSIDE RECORDS SUMMARY | 2025-07-20 13:00 | XMS_ITS ---
Author Organization [facility] Address [address] [facility] [facility] [address] [place] [address] Care Team Providers Care Biometrics Consultant Name Role Phone BROOKLYN ALCARAZ Unavailable [phone] ALEX ARMENDARIZ Unavailable [phone] Encounters Encounter Location Date Provider Diagnosis [facility] Telehealth [address] [facility] [facility] [address] [place] [address] 07/20/2025 ALEX ARMENDARIZ Plan Of Treatment No Information Progress Notes * CLAIRE Yuni NDOB:2005 (20 yo F)Acc No.[id number]:07/20/2025 CONFIDENTIAL ENCOUNTER UNLOC KED PROGRESS NOTE Psychotherapy 60 Minutes Tel evisit Patient: Yuni Correa N Provider: JANA Phoenix :2005 A ge:20 Y S ex:Female Date:07/20/2025 Phone: Address:[address] [place] [id number] Check Out:07:44 PM EST Billing Information: * Procedure Codes: * Electronic signature of JANA HOOD, [id number] on 07/28/2025 at 01:17 PM EST Sign off status: Pending Signatures: No Ad Hoc Signature Added * Provider: JANA Phoenix Date: 09/19/2024 Generated for Franklin loya/Pura/Lew on: 09/27/2024 01:17 PM EST
--- OUTSIDE RECORDS SUMMARY | 2025-07-23 14:00 | XMS_ITS ---
Author Organization [facility] Address [address] [facility] [address] [place] [address] Care Team Providers Care Schedule Maker Name Role Phone BROOKLYN ALCARAZ Unavailable [phone] ALEX ARMENDARIZ Unavailable [phone] Encounters Encounter Location Date Provider Diagnosis [facility] Telehealth [address] [facility] [address] [place] [address] 07/23/2025 ALEX ARMENDARIZ Plan Of Treatment No Information Progress Notes * CLAIRE Yuni NDOB:2005 (20 yo F)Acc No.[id number]:07/23/2025 CONFIDENTIAL ENCOUNTER UNLOC KED PROGRESS NOTE Psychotherapy 60 Minutes Tel evisit Patient: Yuni Correa N Provider: JANA Phoenix :2005 A ge:20 Y S ex:Female Date:07/23/2025 Phone: Address:[id number] Billing Information: * Procedure Codes: * Electronic signature of JANA HOOD, [id number] on 07/28/2025 at 01:17 PM EST Sign off status: Pending Signatures: No Ad Hoc Signature Added * Provider: JANA Phoenix Date: 09/22/2024 Generated for Franklin loya/Pura/eTransmitting on: 09/27/2024 01:17 PM EST
--- OUTSIDE RECORDS SUMMARY | 2025-07-27 13:00 | XMS_ITS ---
Author Organization [facility] Address [address] [facility] [address] [place] [address] Care Team Providers Care Securities Sales Associate Name Role Phone BROOKLYN ALCARAZ Unavailable [phone] ALEX ARMENDARIZ Unavailable [phone] Encounters Encounter Location Date Provider Diagnosis [facility] Telehealth [address] [facility] [address] [place] [address] 07/27/2025 ALEX ARMENDARIZ Plan Of Treatment No Information Progress Notes * CLAIRE Yuni NDOB:2005 (20 yo F)Acc No.[id number]:07/27/2025 CONFIDENTIAL ENCOUNTER UNLOC KED PROGRESS NOTE Psychotherapy 60 Minutes Tel evisit Patient: Yuni Correa N Provider: JANA Phoenix :2005 A ge:20 Y S ex:Female Date:07/27/2025 Phone: Address:[id number] Billing Information: * Procedure Codes: * Electronic signature of JANA HOOD, [id number] on 07/28/2025 at 01:18 PM EST Sign off status: Pending Signatures: No Ad Hoc Signature Added * Provider: JANA Phoenix Date: 09/26/2024 Generated for Franklin loya/Pura/eTransmitting on: 09/27/2024 01:18 PM EST
[2025-07-28 12:41] LABS: Iron 233 mcg/dL (30-160); Percent Iron Saturation 67 % (15-50); Total Iron Binding Capacity 349 mcg/dL (228-428); Unsaturated Iron Binding 116 ug/dL
[2025-07-28 13:01] LABS: Ferritin 119 ng/mL (10-122)
--- OUTSIDE RECORDS SUMMARY | 2025-07-28 13:17 | XMS_ITS | Clinical Summary ---
Author Organization [facility] Address [address] [place] [id number] Care Team Providers Care Semiconductor Manufacturing Technician Name Role Phone Yuni Anaya Primary Care Provider [phone] Allergies Active Allergy Reactions Criticality Noted Date Comments Amoxicillin Hives 11/06/2023 Medications fluticasone propionate (Flovent HFA) 44 mcg inhaler Inhale 2 puffs by mouth 2 times daily. 01/03/2022 Active albuterol (PROAIR HFA,VENTOLIN HFA) 90 mcg inhaler Inhale 2 puffs by mouth every 4 hours as needed. 01/03/2022 Active sertraline (ZOLOFT) 100 mg tablet 50 mg. 01/01/2023 Active norgestimate-eth inyl estradioL (Jzf-Bq-Zkgwfy) 0.18/0.215/0.25 mg-25 mcg per tabletIndication s:Class 1 [...] Labs today and once back will consider SALES AND SERVICE CONSULTANT referral v. Endocrinology, f/u prn Depression 03/09/2021 [...] after 2 weeks, or seeking prescribing from Psychiatrist/industrial psychology professor, pt and parents all elect to start [...] Description 05/14/2026 10:40 AM EDT Office Visit [facility] [address] [place] [address] Jewel Bearing Grinder: Dasha Lott, Fabiola Bailey MD [address] [place] [address] Health Maintenance Due Date Last Done Comments HIV Screening 2005 Hepatitis C Screening 2005 1 Week [facility] 2005 1 Month [facility] 2005 2 Month WC 2005 4 Month WC 2005 6 Month WCC 2005 9 Month WCC 03/27/2006 12 Month WCC 07/07/2006 15 Month WC 09/23/2006 18 Month WC 12/22/2006 24 Month WC 06/20/2007 30 Month [facility] 10/24/2007 3 to 21 Year WC 2008 [...] season) 2025, 02/21/2021 Influenza Vaccine (#1) 2025 Hepatitis B Vaccines Completed 10/08/2024, 04/04/2024, 02/28/2024 MMR Vaccines Completed 10/08/2024, 04/04/2024 Varicella Vaccines Completed 10/08/2024, 04/04/2024 Meningococcal Vaccine Completed 04/23/2025, 024 Insurance [facility] [id number] [place] [address] [facility] Care Teams Semiconductor Manufacturing Technician Relationship Specialty Start Date End Date Yuni Anaya [facility] [address] [place] [id number] PCP - General Pediatrics 06/24/21
--- OUTSIDE RECORDS SUMMARY | 2025-07-28 13:17 | XMS_ITS | Encounter Summary ---
Author Organization [facility] Address [address] [place] [address] Care Team Providers Care Addiction Social Worker Name Role Phone Yuni Anaya S Primary Care Provider [phone] Reason for Visit * Reason Comments Injury Encounter Details Date Type Department Care Team ([facility] st Contact Info) Description 01/07/[address] [phone] Nancy Alamo NP Injury Social [...] on filedocumented in this encounter Care Teams Addiction Social Worker Relationship Specialty Start Date End Date Yuni Anaya [address] [address] PCP - General Pediatrics 05/25/17 documented as of this encounter
--- OUTSIDE RECORDS SUMMARY | 2025-07-28 13:17 | XMS_ITS | Continuity of Care Document ---
Author Organization [facility] Address [address] [place] [address] Care Team Providers Care Weight Caller Name Role Phone Yuni Anaya S Primary Care Provider [phone] Encounters Date Type Department Care Team Description 02/22/[address] [address] Marilia Marcano RN Results ( xray needs disc) 02/20/2021 6:15 PM EDT [facility] [address] [place] [address] Nose injury, initial encounter 02/20/2021 6:00 PM EDT Office Visit [address] [phone] Leila Alvarado PA Nose injury, initial encounter (Primary Dx) 02/20/2021 Travel 05/03/2020 1:30 PM EDT [facility] [address] [place] [address] 05/03/2020 1:15 PM EDT Office Visit [address] [phone] Angelita Hernandez NP Nasal pain; Nasal trauma, initial encounter 05/03/2020 Travel 06/09/2019 6:30 PM EDT [facility] [address] [place] [address] Injury of left hand, initial encounter 06/09/2019 6:00 PM EDT Office Visit [address] [phone] Joycelyn Arellano PA Closed avulsion fracture of middle phalanx of finger, initial encounter (Primary Dx); Injury of left hand, initial encounter 01/07/[address] [phone] Nancy Alamo NP Injury 11/17/2018 4:45 PM EST Radiology [facility] Xray [address] [place] [address] Injury of right hand, initial encounter 11/17/2018 4:30 PM EST Office Visit [address] [address] Arnulfo Miller NP Injury of right hand, initial encounter (Primary Dx); Closed nondisplaced fracture of proximal phalanx of right little finger, initial encounter 09/08/2018 7:00 PM EST Radiology [facility] Xray [address] [place] [address] Right ankle injury, initial encounter 09/08/2018 6:30 PM EST Office Visit [address] [phone] Nancy Alamo NP Right ankle injury, initial encounter (Primary Dx) 05/09/2018 8:15 PM EDT Radiology [facility] Xray [address] [place] [address] Left ankle injury, initial encounter 05/09/2018 7:45 PM EDT Office Visit [address] [address] Ibis Kamara NP Left ankle injury, initial encounter (Primary Dx) 05/25/2017 6:15 PM EDT Office Visit [address] [phone] Arnulfo Miller NP Otitis externa of right ear, unspecified chronicity, unspecified type (Primary Dx); OME (otitis media with effusion), unspecified laterality 2005 Orders Only NON FC SA [address] [address] Adan Hollingsworth Allergies No known active allergies Medications No known medications Active Problems No known active problems Social History Smoking Status as of 07/28/2025 Tobacco Use Types Packs/Day Years Used Date [...] in Daycare Not on file 02/16/2023 In Egg Breaker Program Not on file 3 Type of Egg Breaker Program Not on file 10/2022 Sex and [...] Not on file Procedures * Due to [place] state law, this organization might not be [...] 3:55 AM EDT Results * Due to [place] state law, this organization might not be [...] fracture of the proximal phalanx. Arnulfo Miller [employer] REPORTER IMG XRAY NO CONTRAST ORDERABLE S Final [...] Impression: Normal right ankle. us Nancy Alamo MERCANTILE REPORTER IMG XRAY NO CONTRAST ORDERABLES Final Result [...] lateral ankle swelling 22:09:06 us Ibis Kamara MERCANTILE REPORTER IMG XRAY NO CONTRAST ORDERABLES Final Result * HEMATOCRIT (2005 8:20 AM EDT) HCT (HEMATOCRIT) 62.0 44.0 - 64.0 % [facility] (CLIA# [id number]) Comment:Verified by repeat a nalysis of same specimen 2005 8:20 AM EDT 2005 9:08 AM EDT Narrative [facility] (CLIA# [id number]) - 2005 8:20 AM EDT STAT us Jeny [facility] Final Result [facility] (CLIA# [id number]) [address] [place] [address] * HOLDING BLOOD SPECIMEN (2005 3:55 AM EDT) [facility] (CLIA# [id number]) Comment:CORD SPECIMEN RETAIN ED IN BLOOD BANK FOR 35 DAYS [facility] (CLIA# [id number]) Comment:PLEASE CALL BLOOD BA NK IF FURTHER TESTING IS REQUIRED 2005 3:55 AM EDT 2005 7:02 AM EDT Narrative [facility] (CLIA# [id number]) - 2005 3:55 AM EDT MOTHER NICKIE [id number] A POS Adan Hollingsworth LABORAT[facility] Final Result [facility] (CLIA# [id number]) [address] [place] [address] Visit Diagnoses Diagnosis Start Date Otitis externa [...] Nose injury, initial encounter 02/20/2021 Care Teams Weight Caller Relationship Specialty Start Date End Date Yuni Anaya [place] [address] [place] [address] PCP - General Pediatrics 05/25/17
--- OUTSIDE RECORDS SUMMARY | 2025-07-28 13:17 | XMS_ITS | Patient Health Record ---
Author Organization [facility] Billing Address [address] [place] [id number] Care Team Providers Care Facilities Engineering Manager Name Role Phone Yuni Anaya MD Primary Care Provider TYREE Will Unavailable [phone] Reason For Referral No Information Medications Medication [...] Status Risk Notes Problem Eruption of skin ([id number]) Rash and other nonspecific skin eruption (R21) Active confirmed Plan Of Treatment No Information Insurance Providers Payer Name Payer Address Payer Phone Subscriber Number Group Number Insured Name Patient Relationship to Insured Coverage Start Date Coverage End Date [facility] CLAIMS DEPARTMENT [address] [place] [phone] [id number] Yuni Koch Self - patient is the insured Medical (General) History Surgical History Surgery Date(Month/Year)
--- OUTSIDE RECORDS SUMMARY | 2025-07-28 13:18 | XMS_ITS | Patient Health Record ---
Author Organization [facility] Address [address] [facility] [address] [place] [address] Care Team Providers Care Learning Manager Name Role Phone BROOKLYN ALCARAZ Unavailable [phone] ALEX ARMENDARIZ Unavailable [phone] SATURNINO SIMPSON Unavailable [phone] Therapy, Provider Unavailable [phone] Karen Emery Unavailable [phone] Allergies Allergen (clinical drug ingredient) Drug/Non Drug [...] Sees mom Sunday every other weekend. Brother nAtoine away at college. Kenneth year in high [...] W/U Status Risk Notes Problem Anxiety disorder (799242064) Anxiety disorder, unspecified (F41.9) Active confirmed Problem Obsessive-compuls emily disorder (189836753) Mixed obsessional thoughts and acts (F42.2) Active confirmed Problem Obsessive-compuls emily disorder (229442418) Obsessive-compuls emily disorder, unspecified (F42.9) Active confirmed Problem Moderate recurrent major depression (85509419) Moderate episode of recurrent major depressive disorder (F33.1) Active confirmed Problem Mild recurrent major depression (87905798) Mild episode of recurrent major depressive disorder (F33.0) Active confirmed Problem Attention deficit hyperactivity disorder, predominantly inattentive type (64564987) Attention deficit hyperactivity disorder (ADHD), predominantly inattentive type (F90.0) Active confirmed Problem Post traumatic stress disorder (90496300) Post traumatic stress disorder (F43.10) Active confirmed Encounters Encounter Location Date Provider Diagnosis [facility] Telehealth [address] [address] 07/20/2025 [facility] Telehealth [address] [address] 07/23/2025 [facility] Telehealth [address] [address] 07/27/2025 [facility] Telehealth [address] [address] 07/28/2024 [facility] Anxiety disorder, unspecified F41.9 ; Obsessive-compulsive disorder, unspecified F42.9 and Attention deficit hyperactivity disorder (ADHD), predominantly inattentive type F90.0 [facility] [address] [address] 07/28/2024 BR[facility]NCL ZAMUDIO[facility] Anxiety disorder, unspecified F41.9 ; Mixed obsessional thoughts and acts F42.2 ; Mild episode of recurrent major depressive disorder F33.0 and Attention deficit hyperactivity disorder (ADHD), predominantly inattentive type F90.0 [facility] [address] [address] 07/31/2024 SATURNINO SIMPSON Mild episode of recurrent major depressive disorder F33.0 ; Mixed obsessional thoughts and acts F42.2 and Attention deficit hyperactivity disorder (ADHD), predominantly inattentive type F90.0 [facility] [address] [address] 08/01/2024 [facility] Anxiety disorder, unspecified F41.9 ; Obsessive-compulsive disorder, unspecified F42.9 and Attention deficit hyperactivity disorder (ADHD), predominantly inattentive type F90.0 [facility] [address] [address] 08/04/2024 SATURNINO SIMPSON Mild episode of recurrent major depressive disorder F33.0 ; Mixed obsessional thoughts and acts F42.2 and Attention deficit hyperactivity disorder (ADHD), predominantly inattentive type F90.0 [facility] [address] [address] 08/06/2024 BROOKLYNCL WAREAULT[facility] Anxiety disorder, unspecified F41.9 ; Obsessive-compulsive disorder, unspecified F42.9 and Attention deficit hyperactivity disorder (ADHD), predominantly inattentive type F90.0 [facility] [address] [address] 08/07/2024 SATURNINO SIMPSON Mild episode of recurrent major depressive disorder F33.0 ; Mixed obsessional thoughts and acts F42.2 and Attention deficit hyperactivity disorder (ADHD), predominantly inattentive type F90.0 [facility] [address] [address] 08/08/2024 BROOKLYN DENAULT[facility] Anxiety disorder, unspecified F41.9 ; Obsessive-compulsive disorder, unspecified F42.9 and Attention deficit hyperactivity disorder (ADHD), predominantly inattentive type F90.0 [facility] [address] [address] 08/08/2024 BROOKLYN DENAULT-MAY Anxiety disorder, unspecified F41.9 ; Obsessive-compulsive disorder, unspecified F42.9 and Attention deficit hyperactivity disorder (ADHD), predominantly inattentive type F90.0 [facility] [address] [address] 08/10/2024 ALEX ARMENDARIZ Mild episode of recurrent major depressive disorder F33.0 [facility] [address] [address] 08/12/2024 BROOKLYN DENAULT-[facility] Anxiety disorder, unspecified F41.9 ; Obsessive-compulsive disorder, unspecified F42.9 and Attention deficit hyperactivity disorder (ADHD), predominantly inattentive type F90.[address] [address] 08/18/2024 Karen Emery Attention deficit hyperactivity disorder (ADHD), predominantly inattentive type F90.0 [facility] [address] [address] 08/19/2024 BR[facility]ULT[facility] Anxiety disorder, unspecified F41.9 ; Obsessive-compulsive disorder, unspecified F42.9 and Attention deficit hyperactivity disorder (ADHD), predominantly inattentive type F90.0 [facility] [address] [address] 08/22/2024 BROOKLYN DENAULT-MAY Anxiety disorder, unspecified F41.9 ; Obsessive-compulsive disorder, unspecified F42.9 and Attention deficit hyperactivity disorder (ADHD), predominantly inattentive type F90.0 [facility] [address] [address] 08/25/2024 SATURNINO SIMPSON Mild episode of recurrent major depressive disorder F33.0 ; Mixed obsessional thoughts and acts F42.2 and Attention deficit hyperactivity disorder (ADHD), predominantly inattentive type F90.0 [facility] [address] [address] 08/25/2024 Karen Emery Attention deficit hyperactivity disorder (ADHD), predominantly inattentive type F90.[address] [facility] [address] [address] 08/28/2024 Karen Emery Attention deficit hyperactivity disorder (ADHD), predominantly inattentive type F90.0 [facility] [address] [address] 08/29/2024 BROOKLYN DENAULT[facility] Anxiety disorder, unspecified F41.9 ; Obsessive-compulsive disorder, unspecified F42.9 and Attention deficit hyperactivity disorder (ADHD), predominantly inattentive type F90.[address] [address] 09/01/2024 BROOKLYN DENAULT-MAY Anxiety disorder, unspecified F41.9 ; Obsessive-compulsive disorder, unspecified F42.9 and Attention deficit hyperactivity disorder (ADHD), predominantly inattentive type F90.[address] [address] 09/16/2024 BROOKLYN DENAULT-MAY Anxiety disorder, unspecified F41.9 ; Obsessive-compulsive disorder, unspecified F42.9 and Attention deficit hyperactivity disorder (ADHD), predominantly inattentive type F90.0 [facility] [address] [address] 09/19/2024 BROOKLYN DENAULT-MAY Anxiety disorder, unspecified F41.9 ; Obsessive-compulsive disorder, unspecified F42.9 and Attention deficit hyperactivity disorder (ADHD), predominantly inattentive type F90.[address] [address] 09/23/2024 BROOKLYN DENAULT-MAY Anxiety disorder, unspecified F41.9 ; Obsessive-compulsive disorder, unspecified F42.9 and Attention deficit hyperactivity disorder (ADHD), predominantly inattentive type F90.0 [facility] 1 [facility] [address] [place] [address] 09/24/2024 Karen Emrey Attention deficit hyperactivity disorder (ADHD), predominantly inattentive type F90.[address] [address] 09/25/2024 Karen Emery Attention deficit hyperactivity disorder (ADHD), predominantly inattentive type F90.0 [facility] 1 [facility] [address] [place] [address] 09/26/2024 BROOKLYN DENAULT-MAY Anxiety disorder, unspecified F41.9 ; Obsessive-compulsive disorder, unspecified F42.9 and Attention deficit hyperactivity disorder (ADHD), predominantly inattentive type F90.0 [facility] [address] [address] 09/29/2024 SATURNINO SIMPSON Mild episode of recurrent major depressive disorder F33.0 ; Mixed obsessional thoughts and acts F42.2 and Attention deficit hyperactivity disorder (ADHD), predominantly inattentive type F90.0 [facility] [address] [address] 09/30/2024 BROOKLYN DENAULT-MAY Anxiety disorder, unspecified F41.9 ; Obsessive-compulsive disorder, unspecified F42.9 and Attention deficit hyperactivity disorder (ADHD), predominantly inattentive type F90.0 [facility] [address] [address] 10/03/2024 BROOKLYN DENAULT-[facility]Y Anxiety disorder, unspecified F41.9 ; Obsessive-compulsive disorder, unspecified F42.9 and Attention deficit hyperactivity disorder (ADHD), predominantly inattentive type F90.0 [address] [place] [address] 10/07/2024 BROOKLYN DENAULT-MAY Anxiety disorder, unspecified F41.9 ; Obsessive-compulsive disorder, unspecified F42.9 and Attention deficit hyperactivity disorder (ADHD), predominantly inattentive type F90.0 [facility] [address] [address] 10/10/2024 BROOKLYN DENAULT-MAY Anxiety disorder, unspecified F41.9 ; Obsessive-compulsive disorder, unspecified F42.9 and Attention deficit hyperactivity disorder (ADHD), predominantly inattentive type F90.0 [facility] [address] [address] 10/17/2024 BROOKLYN DENAULT-MAY Anxiety disorder, unspecified F41.9 ; Obsessive-compulsive disorder, unspecified F42.9 and Attention deficit hyperactivity disorder (ADHD), predominantly inattentive type F90.0 [facility] [address] [address] 10/24/2024 BROOKLYN DENAULT-MAY Attention deficit hyperactivity disorder (ADHD), predominantly inattentive type F90.0 and Other reactions to severe stress F43.[address] [address] 10/28/2024 Karen Rupert Attention deficit hyperactivity disorder (ADHD), predominantly inattentive type F90.0 [facility] [address] [address] 10/31/2024 SATURNINO SIMPSON Mild episode of recurrent major depressive disorder F33.0 ; Mixed obsessional thoughts and acts F42.2 and Attention deficit hyperactivity disorder (ADHD), predominantly inattentive type F90.0 [facility] [address] [address] 10/31/2024 BROOKLYN ALCARAZ Attention deficit hyperactivity disorder (ADHD), predominantly inattentive type F90.0 and Other reactions to severe stress F43.89 [facility] [address] [address] 11/14/2024 BROOKLYN ALCARAZ Attention deficit hyperactivity disorder (ADHD), predominantly inattentive type F90.0 and Other reactions to severe stress F43.89 [facility] [address] [address] 11/21/2024 BROOKLYN ALCARAZ Attention deficit hyperactivity disorder (ADHD), predominantly inattentive type F90.0 and Other reactions to severe stress F43.[address] [address] 11/27/2024 Karen Emery Attention deficit hyperactivity disorder (ADHD), predominantly inattentive type F90.0 [facility] [address] [address] 11/28/2024 BROOKLYN ALCARAZ Attention deficit hyperactivity disorder (ADHD), predominantly inattentive type F90.0 and Other reactions to severe stress F43.89 [facility] [address] [address] 12/01/2024 SATURNINO SIMPSON Mild episode of recurrent major depressive disorder F33.0 ; Mixed obsessional thoughts and acts F42.2 and Attention deficit hyperactivity disorder (ADHD), predominantly inattentive type F90.0 [facility] [address] [address] 12/03/2024 BROOKLYN DENAULT-MAY Attention deficit hyperactivity disorder (ADHD), predominantly inattentive type F90.0 and Other reactions to severe stress F43.[address] [address] 12/04/2024 Karen Rupert Attention deficit hyperactivity disorder (ADHD), predominantly inattentive type F90.0 [facility] [address] [address] 12/12/2024 BROOKLYN ZAMUDIO-MAY Attention deficit hyperactivity disorder (ADHD), predominantly inattentive type F90.0 and Other reactions to severe stress F43.[address] [address] 12/18/2024 Karenlove Emery Anxiety disorder, unspecified F41.9 [facility] [address] [address] 12/19/2024 BROOKLYN ZAMUDIO-MAY Attention deficit hyperactivity disorder (ADHD), predominantly inattentive type F90.0 and Other reactions to severe stress F43.89 [facility] [address] [address] 12/26/2024 BROOKLYN ZAMUDIO-MAY Attention deficit hyperactivity disorder (ADHD), predominantly inattentive type F90.0 and Other reactions to severe stress F43.89 [facility] [address] [address] 01/02/2025 BROOKLYN ZAMUDIO-MAY Attention deficit hyperactivity disorder (ADHD), predominantly inattentive type F90.0 and Other reactions to severe stress F43.89 [facility] [address] [address] 01/09/2025 BROOKLYN ZAMUDIO-MAY Attention deficit hyperactivity disorder (ADHD), predominantly inattentive type F90.0 and Other reactions to severe stress F43.89 [facility] [address] [address] 01/16/2025 BROOKLYNCL ZAMUDIO-MAY Attention deficit hyperactivity disorder (ADHD), predominantly inattentive type F90.0 and Other reactions to severe stress F43.89 [facility] [address] [address] 01/19/2025 BROOKLYN ZAMUDIO-MAY Attention deficit hyperactivity disorder (ADHD), predominantly inattentive type F90.0 and Other reactions to severe stress F43.89 [facility] [address] [address] 01/30/2025 BROOKLYN FAULKNERMAY Attention deficit hyperactivity disorder (ADHD), predominantly inattentive type F90.0 and Other reactions to severe stress F43.89 [facility] [address] [address] 02/02/2025 SATURNINO SIMPSON Mild episode of recurrent major depressive disorder F33.0 ; Mixed obsessional thoughts and acts F42.2 and Attention deficit hyperactivity disorder (ADHD), predominantly inattentive type F90.0 [facility] [address] [address] 02/06/2025 BROOKLYN ALCARAZ Attention deficit hyperactivity disorder (ADHD), predominantly inattentive type F90.0 and Other reactions to severe stress F43.89 [facility] [address] [address] 02/13/2025 BROOKLYN ALCARAZ Attention deficit hyperactivity disorder (ADHD), predominantly inattentive type F90.0 and Other reactions to severe stress F43.89 [facility] [address] [address] 02/20/2025 BROOKLYN FAULKNERMAY Attention deficit hyperactivity disorder (ADHD), predominantly inattentive type F90.0 and Other reactions to severe stress F43.89 [facility] [address] [address] 02/26/2025 BROOKLYN FAULKNERMAY Attention deficit hyperactivity disorder (ADHD), predominantly inattentive type F90.0 and Other reactions to severe stress F43.[address] [address] 02/26/2025 Karen Emery Attention deficit hyperactivity disorder (ADHD), predominantly inattentive type F90.0 [facility] [address] [address] 03/05/2025 SATURNINO SIMPSON Mild episode of recurrent major depressive disorder F33.0 ; Mixed obsessional thoughts and acts F42.2 and Attention deficit hyperactivity disorder (ADHD), predominantly inattentive type F90.0 [facility] [address] [address] 03/05/2025 BROOKLYN ZAMUDIO-MAY Attention deficit hyperactivity disorder (ADHD), predominantly inattentive type F90.0 and Other reactions to severe stress F43.89 [facility] [address] [address] 03/12/2025 BROOKLYN ZAMUDIO-MAY Attention deficit hyperactivity disorder (ADHD), predominantly inattentive type F90.0 and Other reactions to severe stress F43.89 [facility] [address] [address] 03/13/2025 BROOKLYN ZAMUDIO-MAY Attention deficit hyperactivity disorder (ADHD), predominantly inattentive type F90.0 and Other reactions to severe stress F43.89 [facility] [address] [address] 03/19/2025 BROOKLYN ZAMUDIO-MAY Attention deficit hyperactivity disorder (ADHD), predominantly inattentive type F90.0 and Other reactions to severe stress F43.89 [address] [address] [place] [address] 03/23/2025 SATURNINO SIMPSON Other reactions to severe stress F43.89 [facility] [address] [address] 03/25/2025 BROOKLYN ZAMUDIO-MAY Attention deficit hyperactivity disorder (ADHD), predominantly inattentive type F90.0 and Other reactions to severe stress F43.89 [facility] [address] [address] 04/02/2025 BROOKLYN ZAMUDIO-MAY Attention deficit hyperactivity disorder (ADHD), predominantly inattentive type F90.0 and Other reactions to severe stress F43.89 [facility] [address] [address] 04/02/2025 BROOKLYN ZAMUDIO-MAY Attention deficit hyperactivity disorder (ADHD), predominantly inattentive type F90.0 and Other reactions to severe stress F43.89 [facility] [address] [address] 04/10/2025 BROOKLYNCL ZAMUDIO-[facility] Attention deficit hyperactivity disorder (ADHD), predominantly inattentive type F90.0 and Other reactions to severe stress F43.89 [facility] [address] [address] 04/16/2025 BROOKLYN ZAMUDIO-MAY Attention deficit hyperactivity disorder (ADHD), predominantly inattentive type F90.0 and Other reactions to severe stress F43.89 [facility] 1 [facility] [address] [place] [address] 05/01/2025 BROOKLYN DENAULT-MAY Attention deficit hyperactivity disorder (ADHD), predominantly inattentive type F90.0 and Other reactions to severe stress F43.89 [facility] [address] [address] 05/07/2025 BROOKLYN DENAULT-MAY Attention deficit hyperactivity disorder (ADHD), predominantly inattentive type F90.0 and Other reactions to severe stress F43.[address] [address] 05/11/2025 BROOKLYN DENAULT-MAY Attention deficit hyperactivity disorder (ADHD), predominantly inattentive type F90.0 ; Other reactions to severe stress F43.89 and Obsessive-compulsive disorder, unspecified F42.9 [facility] [address] [address] 05/14/2025 BROOKLYN DENAULT-MAY Attention deficit hyperactivity disorder (ADHD), predominantly inattentive type F90.0 ; Other reactions to severe stress F43.89 and Obsessive-compulsive disorder, unspecified F42.9 [facility] [address] [address] 05/19/2025 BROOKLYN DENAULT-MAY Attention deficit hyperactivity disorder (ADHD), predominantly inattentive type F90.0 ; Other reactions to severe stress F43.89 and Obsessive-compulsive disorder, unspecified F42.9 [facility] [address] [address] 05/22/2025 BROOKLYN DENAULT-MAY Attention deficit hyperactivity disorder (ADHD), predominantly inattentive type F90.0 ; Other reactions to severe stress F43.89 and Obsessive-compulsive disorder, unspecified F42.9 [facility] [address] [address] 05/26/2025 BROOKLYN DENAULT-MAY Attention deficit hyperactivity disorder (ADHD), predominantly inattentive type F90.0 ; Other reactions to severe stress F43.89 and Obsessive-compulsive disorder, unspecified F42.9 [facility] [address] [address] 05/27/2025 BROOKLYN DENAULT-MAY Obsessive-compulsive disorder, unspecified F42.9 and Anxiety disorder, unspecified F41.9 [facility] [address] [address] 05/29/2025 BROOKLYN ALCARAZ Attention deficit hyperactivity disorder (ADHD), predominantly inattentive type F90.0 ; Other reactions to severe stress F43.89 and Obsessive-compulsive disorder, unspecified F42.9 [facility] [address] [address] 06/02/2025 BROOKLYN ALCARAZ Attention deficit hyperactivity disorder (ADHD), predominantly inattentive type F90.0 ; Other reactions to severe stress F43.89 and Obsessive-compulsive disorder, unspecified F42.9 [facility] [address] 06/05/2025 BROOKLYN ALCARAZ Attention deficit hyperactivity disorder (ADHD), predominantly inattentive type F90.0 ; Other reactions to severe stress F43.89 and Obsessive-compulsive disorder, unspecified F42.9 [facility] [address] [address] 06/12/2025 BROOKLYN ALCARAZ Attention deficit hyperactivity disorder (ADHD), predominantly inattentive type F90.0 ; Other reactions to severe stress F43.89 and Obsessive-compulsive disorder, unspecified F42.9 [facility] [address] [address] 06/12/2025 BROOKLYN ALCARAZ Anxiety disorder, unspecified F41.9 ; Mixed obsessional thoughts and acts F42.2 ; Obsessive-compulsive disorder, unspecified F42.9 and Attention deficit hyperactivity disorder (ADHD), predominantly inattentive type F90.0 [facility] [address] [address] 06/15/2025 ALEX ARMENDARIZ Mild episode of recurrent major depressive disorder F33.0 [facility] [address] [address] 06/22/2025 ALEX ARMENDARIZ Mild episode of recurrent major depressive disorder F33.0 [facility] [address] [address] 06/29/2025 ALEX ARMENDARIZ Mild episode of recurrent major depressive disorder F33.0 [facility] [address] [address] 2025 ALEX ARMENDARIZ Mild episode of recurrent major depressive disorder F33.0 [facility] [address] [place] [address] 07/10/2025 ALEX ARMENDARIZ Moderate episode of recurrent major depressive disorder F33.1 and Post traumatic stress disorder F43.10 [facility] [address] [place] [address] 07/13/2025 ALEX ARMENDARIZ Moderate episode of recurrent major depressive disorder F33.1 and Post traumatic stress disorder F43.10 [facility] [address] [place] [address] 07/15/2025 ALEX ARMENDARIZ Moderate episode of recurrent major depressive disorder F33.1 and Post traumatic stress disorder F43.10 [facility] [address] [place] [address] 10/03/2024 SATURNINO SIMPSON [facility] [address] [place] [address] 10/06/2024 SATURNINO SIMPSON [facility] [place] [address] [place] [address] 10/10/2024 Provider Therapy [facility] [place] [address] [place] [address] 10/22/2024 SATURNINO SIMPSON [facility] [address] [place] [address] 11/12/2024 SATURNINO SIMPSON [facility] [place] [address] [place] [address] 11/24/2024 Provider Therapy [facility] [address] [place] [address] 11/26/2024 SATURNINO SIMPSON [facility] [address] [place] [address] 12/01/2024 SATURNINO SIMPSON [facility] [place] [address] [place] [address] 12/01/2024 Provider Therapy [facility] [address] [place] [address] 12/01/2024 Provider Therapy [facility] [address] [place] [address] 12/10/2024 SATURNINO SIMPSON [facility] [place] [address] [place] [address] 12/12/2024 Provider Therapy [facility] [address] [place] [address] 12/12/2024 Provider Therapy [facility] [address] [address] 01/26/2025 Provider Therapy [facility] [place] [address] [place] [address] 03/12/2025 Provider Therapy [facility] [place] [address] [place] [address] 03/19/2025 SATURNINO SIMPSON [facility] [place] [address] [place] [address] 03/23/2025 SATURNINO SIMPSON [facility] [place] [address] [place] [address] 06/01/2025 Provider Therapy [facility] [place] [address] [place] [address] 07/07/2025 Provider Therapy [facility] [address] [place] [address] 07/15/2025 BROOKLYN ALCARAZ [facility] [place] [address] [place] [address] 07/30/2024 SATURNINO SIMPSON [facility] [place] [address] [facility] [place] [address] 08/17/2024 SATURNINO SIMPSON [facility] - [address] [address] 08/18/2024 SATURNINO SIMPSON [facility] - [address] [address] 08/25/2024 SATURNINO SIMPSON [facility] [place] [address] [place] [address] 08/27/2024 SATURNINO SIMPSON [facility] [place] [address] [place] [address] 08/27/2024 SATURNINO SIMPSON [facility] [place] [address] [place] [address] 08/28/2024 SATURNINO SIMPSON [facility] [address] [place] [address] 09/24/2024 SATURNINO SIMPSON [facility] [address] [place] [address] 10/22/2024 SATURNINO SIMPSON [facility] [address] [place] [address] 10/28/2024 SATURNINO SIMPSON [facility] Telehealth [address] [place] [address] 11/27/2024 SATURNINO SIMPSON [facility] [address] [place] [address] 11/27/2024 SATURNINO SIMPSON [facility] Tele[facility] [address] [place] [address] 12/17/2024 SATURNINO SIMPSON [facility] [address] [place] [address] 02/18/2025 Karenlove Emery [facility] [address] [place] [address] 02/26/2025 SATURNINO SIMPSON [facility] [address] [place] [address] 03/16/2025 SATURNINO SIMPSON Assessments Encounter Date Diagnosis (ICD Code) Assessment Notes Treatment Notes Treatment Clinical Notes Section Notes 07/28/2024 Anxiety disorder, unspecified (ICD-10 - F41.9) 08/19/2024 Anxiety disorder, unspecified (ICD-10 - F41.9) 08/25/2024 Attention deficit hyperactivity disorder (ADHD), predominantly inattentive type (ICD-10 - F90.0) 08/29/2024 Anxiety disorder, unspecified (ICD-10 - F41.9) 09/19/2024 Anxiety disorder, unspecified (ICD-10 - F41.9) 09/23/2024 Anxiety disorder, unspecified (ICD-10 - F41.9) 09/26/2024 Anxiety disorder, unspecified (ICD-10 - F41.9) 10/03/2024 Anxiety disorder, unspecified (ICD-10 - F41.9) 10/28/2024 Attention deficit hyperactivity disorder (ADHD), predominantly inattentive type (ICD-10 - F90.0) 11/14/2024 Attention deficit hyperactivity disorder (ADHD), predominantly inattentive type (ICD-10 - F90.0) 11/28/2024 Attention deficit hyperactivity disorder (ADHD), predominantly inattentive type (ICD-10 - F90.0) 12/19/2024 Attention deficit hyperactivity disorder (ADHD), predominantly [...] recurrent major depressive disorder (ICD-10 - F33.0) 07/13/2025 Moderate episode of recurrent major depressive disorder (ICD-10 - F33.1) 07/15/2025 Moderate episode of recurrent major depressive disorder (ICD-10 - F33.1) 02/13/2025 Attention deficit hyperactivity disorder (ADHD), predominantly inattentive type (ICD-10 - F90.0) 02/06/2025 Attention deficit hyperactivity disorder (ADHD), predominantly inattentive type (ICD-10 - F90.0) 02/02/2025 Mild episode of recurrent major depressive disorder (ICD-10 - F33.0) 01/09/2025 Attention deficit hyperactivity disorder (ADHD), predominantly inattentive type (ICD-10 - F90.0) 01/02/2025 Attention deficit hyperactivity disorder (ADHD), predominantly inattentive type (ICD-10 - F90.0) 12/18/2024 Anxiety disorder, unspecified (ICD-10 - F41.9) 12/12/2024 Attention deficit hyperactivity disorder (ADHD), predominantly inattentive type (ICD-10 - F90.0) 12/04/2024 Attention deficit hyperactivity disorder (ADHD), predominantly inattentive type (ICD-10 - F90.0) 12/03/2024 Attention deficit hyperactivity disorder (ADHD), predominantly inattentive type (ICD-10 - F90.0) 12/01/2024 Mild episode of recurrent major depressive disorder (ICD-10 - F33.0) 11/27/2024 Attention deficit hyperactivity disorder (ADHD), predominantly inattentive type (ICD-10 - F90.0) 10/31/2024 Mild episode of recurrent major depressive disorder (ICD-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.0) 10/31/2024 Attention deficit hyperactivity disorder (ADHD), predominantly inattentive type (ICD-10 - F90.0) 10/24/2024 Other reactions to severe stress (ICD-10 - F43.89) 10/24/2024 Attention deficit hyperactivity disorder (ADHD), predominantly inattentive type (ICD-10 - F90.0) 10/17/2024 Anxiety disorder, unspecified (ICD-10 - F41.9) 10/10/2024 Anxiety disorder, unspecified (ICD-10 - F41.9) 10/07/2024 Anxiety disorder, unspecified (ICD-10 - F41.9) 09/30/2024 Anxiety disorder, unspecified (ICD-10 - F41.9) 09/25/2024 Attention deficit hyperactivity disorder (ADHD), predominantly inattentive type (ICD-10 - F90.0) 09/24/2024 Attention deficit hyperactivity disorder (ADHD), predominantly inattentive type (ICD-10 - F90.0) 09/16/2024 Anxiety disorder, unspecified (ICD-10 - F41.9) 09/29/2024 Mild episode of recurrent major depressive disorder (ICD-10 - F33.0) 09/01/2024 Anxiety disorder, unspecified (ICD-10 - F41.9) 08/28/2024 Attention deficit hyperactivity disorder (ADHD), predominantly inattentive type (ICD-10 - F90.0) 08/25/2024 Mild episode of recurrent major depressive disorder (ICD-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.0) 08/18/2024 Attention deficit hyperactivity disorder (ADHD), predominantly inattentive type (ICD-10 - F90.0) 08/12/2024 Anxiety disorder, unspecified (ICD-10 - F41.9) 08/10/2024 Mild episode of recurrent major depressive disorder (ICD-10 - F33.0) 08/08/2024 Anxiety disorder, unspecified (ICD-10 - F41.9) 08/22/2024 Anxiety disorder, unspecified (ICD-10 - F41.9) 08/08/2024 Anxiety disorder, unspecified (ICD-10 - F41.9) 08/07/2024 Mild episode of recurrent major depressive disorder (ICD-10 - F33.0) 08/06/2024 Anxiety disorder, unspecified (ICD-10 - F41.9) 08/04/2024 Mild episode of recurrent major depressive disorder (ICD-10 - F33.0) 08/01/2024 Anxiety disorder, unspecified (ICD-10 - F41.9) 07/31/2024 Mild episode of recurrent major depressive disorder (ICD-10 - F33.0) 07/28/2024 Anxiety disorder, unspecified (ICD-10 - F41.9) 07/10/2025 Moderate episode of recurrent major depressive disorder (ICD-10 - F33.1) 07/10/2025 Post traumatic stress disorder (ICD-10 - F43.10) 06/22/2025 Mild episode of recurrent major depressive disorder (ICD-10 - F33.0) 06/12/2025 Attention deficit hyperactivity disorder (ADHD), predominantly inattentive type (ICD-10 - F90.0) 06/05/2025 Attention deficit hyperactivity disorder (ADHD), predominantly inattentive type (ICD-10 - F90.0) 05/29/2025 Attention deficit hyperactivity disorder (ADHD), predominantly inattentive type (ICD-10 - F90.0) 05/27/2025 Obsessive-compul sive disorder, unspecified (ICD-10 - F42.9) 05/26/2025 Attention deficit hyperactivity disorder (ADHD), predominantly [...] (ADHD), predominantly inattentive type (ICD-10 - F90.0) 03/25/2025 Attention deficit hyperactivity disorder (ADHD), predominantly inattentive type (ICD-10 - F90.0) 03/23/2025 Other reactions to severe stress (ICD-10 - F43.89) 03/19/2025 Attention deficit hyperactivity disorder (ADHD), predominantly inattentive type (ICD-10 - F90.0) 03/13/2025 Attention deficit hyperactivity disorder (ADHD), predominantly inattentive type (ICD-10 - F90.0) 03/12/2025 Attention deficit hyperactivity disorder (ADHD), predominantly inattentive type (ICD-10 - F90.0) 03/05/2025 Mild episode of recurrent major depressive disorder (ICD-10 - F33.0) 03/05/2025 Attention deficit hyperactivity disorder (ADHD), predominantly [...] predominantly inattentive type (ICD-10 - F90.0) 11/21/2024 Other reactions to severe stress (ICD-10 - F43.89) 12/26/2024 Other reactions to severe stress (ICD-10 - F43.89) 01/16/2025 Other reactions to severe stress (ICD-10 - F43.89) 02/26/2025 Other reactions to severe stress (ICD-10 - F43.89) 05/11/2025 Other reactions to severe stress (ICD-10 - F43.89) 03/05/2025 Other reactions to severe stress (ICD-10 - F43.89) 03/05/2025 Mixed obsessional thoughts and acts (ICD-10 - F42.2) 03/12/2025 Other reactions to severe stress (ICD-10 [...] reactions to severe stress (ICD-10 - F43.89) 05/22/2025 Other reactions to severe stress (ICD-10 - F43.89) 05/27/2025 Anxiety disorder, unspecified (ICD-10 - F41.9) 06/05/2025 Other reactions to severe stress (ICD-10 - F43.89) 05/29/2025 Other reactions to severe stress (ICD-10 - F43.89) 06/12/2025 Other reactions to severe stress (ICD-10 - F43.89) 07/31/2024 Mixed obsessional thoughts and acts (ICD-10 - F42.2) 07/28/2024 Obsessive-compul sive disorder, unspecified (ICD-10 - F42.9) 08/01/2024 Obsessive-compul sive disorder, unspecified (ICD-10 - F42.9) 08/07/2024 Mixed obsessional thoughts and acts (ICD-10 - F42.2) 08/04/2024 Mixed obsessional thoughts and acts (ICD-10 - F42.2) 08/06/2024 Obsessive-compul sive disorder, unspecified (ICD-10 - F42.9) 08/08/2024 Obsessive-compul sive disorder, unspecified (ICD-10 - F42.9) 08/22/2024 Obsessive-compul sive disorder, unspecified (ICD-10 - F42.9) 08/08/2024 Obsessive-compul sive disorder, unspecified (ICD-10 - F42.9) 08/12/2024 Obsessive-compul sive disorder, unspecified (ICD-10 - F42.9) 08/25/2024 Mixed obsessional thoughts and acts (ICD-10 - F42.2) 09/01/2024 Obsessive-compul sive disorder, unspecified (ICD-10 - F42.9) 09/16/2024 Obsessive-compul sive disorder, unspecified (ICD-10 - F42.9) 09/30/2024 Obsessive-compul sive disorder, unspecified (ICD-10 - F42.9) 10/31/2024 Other reactions to severe stress (ICD-10 - F43.89) 09/29/2024 Mixed obsessional thoughts and acts (ICD-10 - F42.2) 10/07/2024 Obsessive-compul sive disorder, unspecified (ICD-10 - F42.9) 10/10/2024 Obsessive-compul sive disorder, unspecified (ICD-10 - F42.9) 10/17/2024 Obsessive-compul sive disorder, unspecified (ICD-10 - F42.9) 10/31/2024 Mixed obsessional thoughts and acts (ICD-10 - F42.2) 12/01/2024 Mixed obsessional thoughts and acts (ICD-10 - F42.2) 12/03/2024 Other reactions to severe stress (ICD-10 - F43.89) 12/12/2024 Other reactions to severe stress (ICD-10 - F43.89) 01/02/2025 Other reactions to severe stress (ICD-10 - F43.89) 06/02/2025 Other reactions to severe stress (ICD-10 - F43.89) 01/09/2025 Other reactions to severe stress (ICD-10 - F43.89) 02/02/2025 Mixed obsessional thoughts and acts (ICD-10 - F42.2) 02/06/2025 Other reactions to severe stress (ICD-10 - F43.89) 07/15/2025 Post traumatic stress disorder (ICD-10 - F43.10) 02/13/2025 Other reactions to severe stress (ICD-10 - F43.89) 07/13/2025 Post traumatic stress disorder (ICD-10 - F43.10) 06/12/2025 Mixed obsessional thoughts and acts (ICD-10 - F42.2) 04/02/2025 Other reactions to severe stress (ICD-10 - F43.89) 02/20/2025 Other reactions to severe stress (ICD-10 - F43.89) 01/30/2025 Other reactions to severe stress (ICD-10 - F43.89) 01/19/2025 Other reactions to severe stress (ICD-10 - F43.89) 12/19/2024 Other reactions to severe stress (ICD-10 - F43.89) 11/28/2024 Other reactions to severe stress (ICD-10 - F43.89) 11/14/2024 Other reactions to severe stress (ICD-10 - F43.89) 10/03/2024 Obsessive-compul sive disorder, unspecified (ICD-10 - F42.9) 09/26/2024 Obsessive-compul sive disorder, unspecified (ICD-10 - F42.9) 09/23/2024 Obsessive-compul sive disorder, unspecified (ICD-10 - F42.9) 09/19/2024 Obsessive-compul sive disorder, unspecified (ICD-10 - F42.9) 08/29/2024 Obsessive-compul sive disorder, unspecified (ICD-10 - F42.9) 08/19/2024 Obsessive-compul sive disorder, unspecified (ICD-10 - F42.9) 07/28/2024 Mixed obsessional thoughts and acts (ICD-10 - F42.2) 07/28/2024 Mild episode of recurrent major depressive disorder (ICD-10 - F33.0) 08/19/2024 Attention deficit hyperactivity disorder (ADHD), predominantly [...] predominantly inattentive type (ICD-10 - F90.0) 06/02/2025 Obsessive-compul sive disorder, unspecified (ICD-10 - F42.9) 06/12/2025 Obsessive-compul sive disorder, unspecified (ICD-10 - F42.9) 02/02/2025 Attention deficit hyperactivity disorder (ADHD), predominantly [...] predominantly inattentive type (ICD-10 - F90.0) 06/05/2025 Obsessive-compul sive disorder, unspecified (ICD-10 - F42.9) 05/29/2025 Obsessive-compul sive disorder, unspecified (ICD-10 - F42.9) 06/12/2025 Obsessive-compul sive disorder, unspecified (ICD-10 - F42.9) 05/26/2025 Obsessive-compul sive disorder, unspecified (ICD-10 - F42.9) 05/22/2025 Obsessive-compul sive disorder, unspecified (ICD-10 - F42.9) 05/11/2025 Obsessive-compul sive disorder, unspecified (ICD-10 - F42.9) 05/14/2025 Obsessive-compul sive disorder, unspecified (ICD-10 - F42.9) 05/19/2025 Obsessive-compul sive disorder, unspecified (ICD-10 - F42.9) 03/05/2025 Attention deficit hyperactivity disorder (ADHD), predominantly [...] Continue in regular therapy. Plan Of Treatment No Information Insurance Providers Payer Name Payer Address Payer Phone Subscriber Number Group Number Insured Name Patient Relationship to Insured Coverage Start Date Coverage End Date [facility] - HMO [address] [place] [phone] [id number] Yuni Koch Self - patient is the insured 2 [facility] - HMO [address] [address] [place] [address] [id number] Yuni Koch Self - patient is the insured 3 Medical (General) History Medical History History ICD Code Polycystic ovary syndrome or al contraceptive to regulate, no allergies, albuterol inhaler for when allergies are increased mild asthma vitamin D deficiency secondary ammenorrhea
--- OUTSIDE RECORDS SUMMARY | 2025-07-28 13:18 | XMS_ITS | Clinical Summary ---
Author Organization [facility] spital Address [address] [place] [address] Phone Care Team Providers Care Craft Demonstrator Name Role Phone Yuni Anaya MD Primary Care Provider [phone] Yuni Anaya MD Unavailable Medications * This document contains information received [...] patient's age to complete [place] [id number] Care Teams Craft Demonstrator Relationship Specialty Start Date End Date Yuni Anaya MD [address] [place] [id number] PCP - General 08/10/23 Yuni Anaya MD [address] [place] [phone] PCP - Clinical PCP 08/10/23
[2025-07-29 20:04] LABS: Transferrin 302 mg/dL (188-341)
== END 2025-07-28 11:08 | disposition home or self-care (01) ==
LOC: HO.LAB 11:07
PROVIDERS: Visit Provider Clinical Nurse Specialist Psychiatric/Mental Health
DX: D50.9 Iron deficiency anemia, unspecified (principal)
CPT/HCPCS: 36415; 82728; 83540; 84466

== ENCOUNTER 2025-08-05 21:46 | Emergency (ER) | payer OTHER, MEDICAID, SELFPAY ==
--- NOTE | ~2025-08-05 | XR_ITS ---
CLINICAL HISTORY: foot drop, ipsilateral 4 view right knee Comparison: None provided Findings: No fractures or dislocations. No arthritic change. No joint effusion. No radiopaque foreign body. IMPRESSION: 1. No acute findings. This document has been electronically signed by: Umer Ellis MD on 08/06/2025 01:25:22
[2025-08-05 21:49] VITALS: BP 142/89; PULSE 104; RESP 20; TEMP 36.1; O2SAT 100; BMI 22.3
[2025-08-05 22:32] LABS: MANUAL DIFF FLAG NO
[2025-08-05 22:34] LABS: Hematocrit 35.1 % (37.0-47.0); Hemoglobin 11.7 g/dl (12.0-16.0); Imm Gran Abs Auto 0.01 X10*3/uL (0.00-0.03); Imm Gran Pct Auto 0.1 % (0.0-0.4); Lymphocytes Absolute Auto 2.4 X10*3/uL (1.2-4.9); Mean Corpuscular HGB Conc 33.3 g/dl (31.0-35.0); Mean Corpuscular Hemoglobin 29.5 pg (27.0-33.0); Mean Corpuscular Volume 88.6 fL (80.0-98.0); NRBC Abs Auto 0.000 X10*3/uL (0.0-0.012); NRBC Pct Auto 0.0 /100WBC (0.0-0.2); Platelet Count 251 X10*3/uL (160-400); Red Blood Count 3.96 X10*6/uL (4.20-5.50); White Blood Count 7.1 X10*3/uL (4.8-10.8)
[2025-08-05 22:51] LABS: Alanine Aminotransferase 21 U/L (0-31); Albumin Level 4.3 g/dL (3.5-5.0); Alkaline Phosphatase 49 U/L (39-117); Anion Gap 12 (12-20); Aspartate Amino Transferase 21 U/L (5-31); Blood Urea Nitrogen 7 mg/dL (9-16); Calcium 9.4 mg/dL (8.4-10.2); Carbon Dioxide 25 mmol/L (22-29); Chloride 107 mmol/L (96-108); Creatinine Clr Calc Pharmacy 130.2; Estimated Glomerular Filt Rate > 60; Potassium 3.4 mmol/L (3.3-5.1); Sodium 141 mmol/L (135-145); Total Protein 7.0 g/dL (6.5-8.0)
--- NOTE | 2025-08-05 23:03 | PC.NURSE ---
pt reports inability to dorsiflex her R foot. Able to flex and stand on tippy toes but not on heels or lift foot up to dorsiflex. denies pain.
--- NOTE | 2025-08-06 00:25 | ED_ITS ---
HPI - Extremity Problem General Chief complaint: Extremity Problem Stated complaint: unable to lift right foot Time Seen by Provider: 08/05/25 23:47 History of Present Illness ED Provider: Ronald Carrero MD HPI Narrative: 22-year-old female presents with one week of progressive difficulty lifting her right foot while walking. She describes the foot as feeling ?so loud? and ?slams down,? causing her to trip and nearly fall. She denies any trauma, new footwear, or specific inciting event. Stretching her calves did not help, and she realized she is unable to dorsiflex the right foot. She notices particular difficulty moving from gas to brake while driving. No pain in the foot, thigh, hip, or back; reports only a ?weird? sensation in the right lower extremity. Denies numbness or weakness elsewhere, headaches, neck pain, chest pain, abdominal or back pain, or incontinence. Reports bilateral hand shakiness but normal scarf gluer strength. 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 No daily medications reported. Allergies Not discussed. Review of Systems ? Musculoskeletal: Reports right foot weakness/?foot drop,? no joint pain. ? Neurologic: Right lower extremity dorsiflexion weakness; reports shaky hands. Denies other focal weakness, numbness, headaches, or neck pain. ? Skin: Recent facial rash treated as allergic reaction. Tick bites not reported; no current rash discussed. ? Cardiovascular/Respiratory: Denies chest pain or shortness of breath. ? Gastrointestinal/Genitourinary: Denies abdominal pain or incontinence. All other systems not reviewed during today?s encounter. Related Data Previous Rx's ?Medication ?Instructions ?Recorded famotidine 20 mg tablet (Pepcid) 20 mg PO DAILY abdomi nal 07/10/25 discomfort #14 tabs fluconazole 150 mg tablet 150 mg PO Q3D 2 doses #2 tab s 07/10/25 prednisone 10 mg tablet See Taper PO DAILY #30 tabs 07/10/25 prednisone 10 mg tablet See Taper PO DAILY #30 tabs 07/10/25 Allergies Allergy/AdvReac Type Severity Reaction Status Date / Time amoxicillin Allergy Intermediate Rash Verified 08/05/25 21:51 [facility] Past Medical History Medical History (Updated 08/07/25 @ 00:00 by Jericho Raymond) Major depressive disorder, recurrent severe without psychotic features Generalized anxiety disorder with panic attacks Social History Social History (Updated 07/10/25 @ 07:16 by Jessie Cardenas DO) Patient Tobacco Use Status: Never used Tobacco Physical Exam 2 Exam: Exam: GENERAL: Well appearing. No apparent distress. Alert. HEAD/NECK: Normal to inspection. Neck supple. No cervical lymphadenopathy. EYES: Normal to inspection. Sclera non-icteric. ENMT: External nose normal. RESPIRATORY: Respiratory effort normal. Lungs clear to auscultation bilaterally. CARDIOVASCULAR: Regular rate. Normal rhythm. No murmur. No rubs. GI: Soft, non-tender, non-distended. No rebound or guarding. No masses palpable. No hepatosplenomegaly. SKIN: No jaundice. NEUROLOGICAL: Alert. PSYCHIATRIC: Alert. Appearance appropriate for situation. Attitude cooperative. OTHER: Comprehensive Neuro exam: Face symmetric, tongue midline, strong symmetric eye closure, pupils symmetric and reactive to light, intact sensation to the face throughout, intact strong face deviation and shoulder shrug. Sensation intact to light touch throughout * 5 out of 5 strength in bilateral upper extremities, 5 and 5 strength in lower extremities excluding testing of the right ankle which shows perhaps some mild foot drop weakness in plantar flexion about 3/5 Vital Signs: Vital Signs: Last Vital Signs Temp 97.6 F 08/06/25 01:44 Pulse 95 08/06/25 01:44 Resp 18 08/06/25 01:44 BP 100/64 08/06/25 01:44 Pulse Ox 98 08/06/25 01:44 O2 Del Method Room Air 08/06/25 01:44 BMI result Body Mass Index 22.3 Medical Decision Making Medical Decision Making MDM Narrative: Medical Decision Making: Healthy 20-year-old female with a history of right intra-articular osteoid osteoma per the patient's description remotely not treated now with slow onset tripping falling and soft discovery of foot drop which is mild 3/5 in the right side. No other motor or sensory complaints or objective deficits on examination. Patient has otherwise reassuring exam. She does acknowledge crossing her ankles or legs often in his maybe neurapraxia/peroneal nerve palsy most likely. Certainly we discussed alternative etiologies that we will need to be excluded outpatient with Neurology evaluation possibly EMG or nerve conduction studies she understands this I have described her exactly which type of orthosis she should by and she understands this she will order 1 right away. Preliminary Favored Differential Diagnosis: Peroneal nerve palsy, unlikely [employer]ACHINE [employer]TER compression or cauda equina syndrome, no back pain or other symptoms to suggest radiculopathy, ganglion cyst, acquired mononeuropathy, neuropathy possibly autoimmune no suggestion of underlying diabetes no tick bites or rash and this would be an atypical location of Lyme among additional considered etiologies Testing Interpreted Independently: ?See below for details Radiology or Lab testing Results Reviewed: ?See below for details Consults: ?See below for details Independent Historians/External Chart Reviews: ?See below for details Social Determinants of Health Impacting MDM/Planning: ?See below for details Lab Data 08/05/25 22:06 08/05/25 22:06 Labs: Lab Results 08/05/25 08/06/25 Range/Units 22:06 00:41 WBC 7.1 (4.8-10.8) X10*3/uL RBC 3.96 L (4.20-5.50) X10*6/uL Hgb 11.7 L (12.0-16.0) g/dl Hct 35.1 L (37.0-47.0) % MCV 88.6 (80.0-98.0) fL MCH 29.5 (27.0-33.0) pg MCHC 33.3 (31.0-35.0) g/dl RDW 12.0 (11.0-16.0) % Plt Count 251 (160-400) X10*3/uL MPV 9.6 (9.4-12.3) fL Immature Gran % (Auto) 0.1 (0.0-0.4) % Neut % (Auto) 53.6 (45-73) % Lymph % (Auto) 33.7 (20-40) % Posey % (Auto) 10.5 (2-11) % Eos % (Auto) 1.3 (0-4) % Baso % (Auto) 0.8 (0-2) % Lymph # (Auto) 2.4 (1.2-4.9) X10*3/uL Posey # (Auto) 0.7 (0.1-1.2) X10*3/uL Eos # (Auto) 0.1 (0.0-0.4) X10*3/uL Baso # (Auto) 0.1 (0.0-0.2) X10*3/uL Abs Immat Gran (auto) 0.01 (0.00-0.03) X10*3/uL Absolute Neuts (auto) 3.8 (2.0-8.3) x10*3/uL Absolute Nucleated RBC 0.000 (0.0-0.012) X10*3/uL Nucleated RBC % (auto) 0.0 (0.0-0.2) /100WBC Sodium 141 (135-145) mmol/L Potassium 3.4 D (3.3-5.1) mmol/L Chloride 107 (96-108) mmol/L Carbon Dioxide 25 (22-29) mmol/L Anion Gap 12 (12-20) BUN 7 L (9-16) mg/dL Creatinine 0.77 (0.5-1.4) mg/dL Estim Creat Clear Calc 130.2 Estimated GFR > 60 Random Glucose 92 (60-115) mg/dL Calcium 9.4 (8.4-10.2) mg/dL Total Bilirubin 0.4 (0.0-1.0) mg/dL AST 21 (5-31) U/L ALT 21 (0-31) U/L Alkaline Phosphatase 49 (39-117) U/L Total Protein 7.0 (6.5-8.0) g/dL Albumin 4.3 (3.5-5.0) g/dL Vitamin B12 569 (200-900) pg/mL Folate 15.8 (> or = 4.0) ng/mL Discharge Plan Discharge Clinical Impression: Foot drop Patient Disposition: Home, Self-Care Instructions: Foot Drop (ED) Additional Instructions: At this time though we do not have clear cause for your neurologic weakness of your leg. It is very unlikely to be something severe or emergent based on her interview with you and the your examination age and other history. We recommend close follow up with Neurology the referral is here. We recommend getting the orthosis below and wearing until Neurology sees you this can be purchased quite inexpensively from [employer] Prescriptions: No Action prednisone 10 mg tablet See Taper PO DAILY Qty: 30 0RF Taper: Prednisone 40 mg daily for 3 Days and 0 Hour 30 mg daily for 3 Days and 0 Hour 20 mg daily for 3 Days and 0 Hour 10 mg daily for 3 Days and 0 Hour fluconazole 150 mg tablet 150 mg PO Q3D Qty: 2 1RF Rx Instructions: may repeat second dose 72 hrs after first dose if symptoms persist famotidine [Pepcid] 20 mg tablet 20 mg PO DAILY Qty: 14 0RF prednisone 10 mg tablet See Taper PO DAILY Qty: 30 0RF Taper: Prednisone 40 mg daily for 3 Days and 0 Hour 30 mg daily for 3 Days and 0 Hour 20 mg daily for 3 Days and 0 Hour 10 mg daily for 3 Days and 0 Hour Referrals: [facility] [Provider Group, Neurology] Referral Note: Call for follow up for FOOT DROP Interventions: ED Discharge Assessment Last Done: 08/06/25 01:44 Discharge Date/Time: 08/06/25 01:48 Print Language: Lebanese
[2025-08-06 01:39] LABS: Folate 15.8 ng/mL (> or = 4.0); Vitamin B12 569 pg/mL (200-900)
[2025-08-06 01:44] VITALS: BP 100/64; PULSE 95; RESP 18; TEMP 36.4; O2SAT 98
--- OUTSIDE RECORDS SUMMARY | 2025-08-06 05:29 | XMS_ITS | Clinical Summary ---
Author Organization [facility] Address [address] [place] [address] Care Team Providers Care Taffy Puller Name Role Phone Yuni Anaya Primary Care Provider [phone] Allergies Active Allergy Reactions Criticality Noted Date Comments Amoxicillin Hives 11/06/2023 Medications fluticasone propionate (Flovent HFA) 44 mcg inhaler Inhale 2 puffs by mouth 2 times daily. 01/03/2022 Active albuterol (PROAIR HFA,VENTOLIN HFA) 90 mcg inhaler Inhale 2 puffs by mouth every 4 hours as needed. 01/03/2022 Active sertraline (ZOLOFT) 100 mg tablet 50 mg. 01/01/2023 Active norgestimate-eth inyl estradioL (Ypq-Tc-Jvgjwx) 0.18/0.215/0.25 mg-25 mcg per tabletIndication s:Class 1 [...] Labs today and once back will consider SCENE AND LIGHTING DESIGN LECTURER referral v. Endocrinology, f/u prn Depression 03/09/2021 [...] 2 weeks, or seeking prescribing from Psychiatrist/psych arnp, pt and parents all elect to start [...] Description 05/14/2026 10:40 AM EDT Office Visit [facility] [address] [place] [id number] Special Officer: Dasha Lott, Fabiola Bailey MD [address] [place] [address] Health Maintenance Due Date Last Done Comments HIV Screening 2005 Hepatitis C Screening 2005 1 Week [facility] 2005 1 Month [facility] 2005 2 Month WC 2005 4 Month WC 2005 6 Month WC 2005 9 Month WC 03/27/2006 12 Month WC 07/07/2006 15 Month WC 09/23/2006 18 Month WC 12/22/2006 24 Month [facility] 06/20/2007 30 Month [facility] 10/24/2007 3 to 21 Year [facility] 2008 Well Child Check 2008 HPV Vaccines (1 - 3-dose series) 2020 Chlamydia Screening 2021 DTaP,Tdap,and Td Vaccines (2 - Td or Tdap) 05/27/2024 04/29/2024 Pneumococcal Vaccine: Pediat jung (0-5 Years) and At-Risk Patients (6-50 Years) (1 of 2 - PCV) 2024 Depression Screening and Follow-Up 09/17/2024 Social Drivers of Health Chiquita ual Screening 09/17/2024 Influenza Vaccine (#1) 2025 COVID-19 Vaccine ( season) 2025, 02/21/2021 Hepatitis B Vaccines Completed 10/08/2024, 04/04/2024, 02/28/2024 MMR Vaccines Completed 10/08/2024, 04/04/2024 Varicella Vaccines Completed 10/08/2024, 04/04/2024 Meningococcal Vaccine Completed 04/23/2025, 024 Insurance [facility] [id number] [place] [address] [facility] Care Teams Taffy Puller Relationship Specialty Start Date End Date Yuni Anaya [facility] [address] [place] [id number] PCP - General Pediatrics 06/24/21
== END 2025-08-06 01:48 | disposition home or self-care (01) ==
PROVIDERS: Emergency Provider Emergency Medicine
DX: M21.371 Foot drop, right foot (principal); R26.2 Difficulty in walking, not elsewhere classified
CPT/HCPCS: 36415; 73564; 80053; 82607; 82746; 85025; 99283; 99284

== ENCOUNTER → 2025-08-06 00:24 | Outpatient (BNV) | payer OTHER, MEDICAID, SELFPAY | PROVIDERS: Emergency Provider Emergency Medicine; Visit Provider Radiology Diagnostic Radiology | DX: M21.371 Foot drop, right foot (principal) | CPT/HCPCS: 73564 ==

== ENCOUNTER 2025-08-06 13:00 | Outpatient (RCR) | payer OTHER, MEDICAID, SELFPAY ==
--- NOTE | 2025-06-11 11:32 | P.CONTMS_ITS ---
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 Pt PHQ9= 21 and her GAD7=18. She reports feeling very depressed, low energy, loss of enjoyment in activities, no interest in activities, feels hopeless, feels bad about herself, has poor appetite has trouble concentrations and has passive suicide ideation but no plan and no intent. She reports she is also anxious every day, worries and feels on edge. She pushes herself to go to class but gets very anxious before leaving her dorm. She reports she has tried a number of medications to treat the depression, has been inpatient and to multiple PHPs and ARTs. She has tried therapy 2 x a week and has reached out to campus support for medication and nutrition education. She reports all of theses things help a little bit but she is still very depressed. She denies any episodes of manic behavior. She denies any periods of psychosis. She has a histroy of suicide ideation in past with a plan but did not act on it and was able to tell a provieer precipitating an inpatient stay. She states she does not want to kill herslef she just wants to stop feeling so awful. Pt denies any metal implants. No cochlear implants, no braces, no pacemaker, no metal shards or bullet fragments. Denies surgeries, she denies history of seizures ot migraines; no cardiac issues; she is allergic to amoxicillin Past Psychiatric History/Medication Trials: Depression since in High school; one IPLOC. several PHP and one residential treatment for depression. therapy 1- 2 times a week most of the time since high school Pat med trials wellbutrin = insomnia prozac= self harm seroquel=no response trazadone= no response lexapro- nuasea hydroxyzine- minimally helpful for anxiety and sleep vyvanse=increase HR and anxiety adderall XR 25mg= increased anxiety ritalin -not effective buspar= not effective [facility] Narrative: seasonal allergies asthma PCOS Narrative: none Family History: grew up with M&F and one older brother; parents when pt age 5. spent 50%time with each parents.mother has hx depression and hospitalizations during pt childhood; pt is sophmore in college at [employer]; her best friend also attend there and they are good support to each other. Social History: see above Substance History: none; pt does not drink ETOH, use THC or any recreational substances Trauma History: none reported Meds/Allergies Meds Narrative: zoloft 100mg daily hydroxyzine 10mg 1-2 daily prn anxiety/sleep MVI with iron triphasic BCP zepbound 2.5mg weekly zyrtec daily Allergies Allergies Allergy/AdvReac Type Severity Reaction Status Date / Time amoxicillin Allergy Intermediate Rash Verified 06/11/25 11:50 Mental Status Exam Mental Status Exam Patient Appearance: Well Grooomed and Appropriate Patient Orientation: Person, Place, Time and Situation Level of Consciousness: Awake and Appropriate Patient Behavior: Cooperative and Good Eye Contact Mood Description: Withdrawn, Depressed and Flat Affect Description: Withdrawn, Depressed and Flat Patient Cognition Impaired: No Ability to Follow Directions: Good Speech Pattern: Clear, Monotone and Soft-Spoken Memory Description: Intact Hallucinations: None Delusions: Not Present Thought Process: Intact, Goal Oriented and Slowed Thinking Thought Content: positive for Intact, positive for Goal Oriented and positive for Slowed Thinking Depressive Symptoms: Increased Anxiety, Insomnia, Diff. Making Decisions, Muscle Tension, Increased Irritability, Difficulty Sleeping, Changes in Appetite, Loss of Int. in Activity, Feelings of Worthlessness, Hopelessness, Increased Fatigue, Thoughts of /Suicide, Loss of Energy and Difficulty Concentrating Judgement: Good Assessment & Plan Assessment & Plan (1) Major depressive disorder, recurrent severe without psychotic features: Status: Acute Code(s): F33.2 - Major depressive disorder, recurrent severe without psychotic features (2) Generalized anxiety disorder with panic attacks: Status: Acute Code(s): F41.1 - Generalized anxiety disorder; F41.0 - Panic disorder [episodic paroxysmal anxiety] Plan Pt is an appropriate candidate for TMS. She has had limited response to antidepressants, psychotherapy and higher levels of care; she has no known contraindications including no metal implants, no history of seizures, no history of orville or psychosis; I recommend TMS for patient. Total time managing care of this patient today ___75_ minutes. Patient educated on: TMS and therapeutic strategies Guardian/Caregiver educated on: TMS and therapeutic strategies Informed Consent: understands
--- NOTE | 2025-06-23 17:39 | P.PNPS_ITS ---
TMS Daily Progress Note Daily TMS Progress Note Date of Service: 06/23/25 Week #: 1 Treatment #(10-16): 1 PHQ-9 Pre-Treatment (10-13): 21 PHQ-9 Most Recent (10-13): 25 Reviewed: TMS Mapping/Re-mapping completed Verification: I have reviewed the TMS Sharepoint Engineer Note and agree with the contents. The patient remains a candidate to continue TMS treatment per protocol. Assessment and Plan (1) Major depressive disorder, recurrent severe without psychotic features: Status: Acute (2) Generalized anxiety disorder with panic attacks: Status: Acute Plan Initial mapping completed informed consent was obtained. Patient with high PHQ- 9 did state she can maintain her safety asked to reach out to us if she were feeling worse or unsafe. Patient does have her own psychiatric provider that she sees remotely
--- NOTE | 2025-07-16 10:38 | P.PNPS_ITS ---
TMS Daily Progress Note Daily TMS Progress Note Date of Service: 06/30/25 Week #: 1 Treatment #(10-16): 4 PHQ-9 Pre-Treatment (-): 21 PHQ-9 Most Recent (10-13): 25 SUSIE-7 Pre-Treatment (0-21): 18 SUSIE-7 Most Recent (0-21): 19 CGI-I Most Recent: 0 = Not Assessed Q-LES-Q-SF Most Recent: 39 Reviewed: TMS Tech Note Reviewed Verification: I have reviewed the TMS Director Of Preclinical Research Note and agree with the contents. The patient remains a candidate to continue TMS treatment per protocol. Assessment and Plan (1) Major depressive disorder, recurrent severe without psychotic features: Status: Inactive (2) Generalized anxiety disorder with panic attacks: Status: Inactive Plan Continue TMS treatment protocol
--- NOTE | 2025-07-16 10:40 | HO.TMSDAILY2 ---
TMS Daily Progress Note Daily TMS Progress Note Date of Service: 07/02/25 Week #: 2 Treatment #(10-16): 6 PHQ-9 Pre-Treatment (-): 21 PHQ-9 Most Recent (10-13): 25 SUSIE-7 Pre-Treatment (0-21): 18 SUSIE-7 Most Recent (0-21): 19 CGI-I Most Recent: 0 = Not Assessed Q-LES-Q-SF Most Recent: 39 Reviewed: TMS Tech Note Reviewed Verification: I have reviewed the TMS Gas Stove Servicer Helper Note and agree with the contents. The patient remains a candidate to continue TMS treatment per protocol. Assessment and Plan (1) Major depressive disorder, recurrent severe without psychotic features: Status: Inactive (2) Generalized anxiety disorder with panic attacks: Status: Inactive Plan Pt tolerating TMS well. She is working on reducing intake of energy drinks. Continue TMS treatment protocol
--- NOTE | 2025-07-16 10:41 | HO.TMSDAILY2 ---
TMS Daily Progress Note Daily TMS Progress Note Date of Service: 07/06/25 Week #: 2 Treatment #(10-16): 8 PHQ-9 Pre-Treatment (-): 21 PHQ-9 Most Recent (10-13): 24 SUSIE-7 Pre-Treatment (0-21): 18 SUSIE-7 Most Recent (0-21): 18 CGI-I Most Recent: 0 = Not Assessed Q-LES-Q-SF Most Recent: 39 Reviewed: TMS Tech Note Reviewed Verification: I have reviewed the TMS Development Technical Lead Note and agree with the contents. The patient remains a candidate to continue TMS treatment per protocol. Assessment and Plan (1) Major depressive disorder, recurrent severe without psychotic features: Status: Inactive (2) Generalized anxiety disorder with panic attacks: Status: Inactive Plan Pt tolerating TMS well. Continue TMS treatment protocol
--- NOTE | 2025-07-16 10:43 | HO.TMSDAILY2 ---
TMS Daily Progress Note Daily TMS Progress Note Date of Service: 07/16/25 Week #: 2 Treatment #(10-16): 9 PHQ-9 Pre-Treatment (-): 21 PHQ-9 Most Recent (10-13): 24 SUSIE-7 Pre-Treatment (0-21): 18 SUSIE-7 Most Recent (0-21): 18 CGI-I Most Recent: 0 = Not Assessed Q-LES-Q-SF Most Recent: 41 Reviewed: TMS Tech Note Reviewed Verification: I have reviewed the TMS Simulation Specialist Note and agree with the contents. The patient remains a candidate to continue TMS treatment per protocol. Assessment and Plan (1) Major depressive disorder, recurrent severe without psychotic features: Status: Inactive (2) Generalized anxiety disorder with panic attacks: Status: Inactive Plan Pt tolerating TMS well. Continue TMS treatment protocol
--- NOTE | 2025-07-16 10:43 | HO.TMSDAILY2 ---
TMS Daily Progress Note Daily TMS Progress Note Date of Service: 07/13/25 Week #: 3 Treatment #(10-16): 13 PHQ-9 Pre-Treatment (-): 21 PHQ-9 Most Recent (10-13): 24 SUSIE-7 Pre-Treatment (0-21): 18 SUSIE-7 Most Recent (0-21): 15 CGI-I Most Recent: 0 = Not Assessed Q-LES-Q-SF Most Recent: 41 Reviewed: TMS Tech Note Reviewed Verification: I have reviewed the TMS Sociocultural Anthropology Professor Note and agree with the contents. The patient remains a candidate to continue TMS treatment per protocol. Assessment and Plan (1) Major depressive disorder, recurrent severe without psychotic features: Status: Inactive (2) Generalized anxiety disorder with panic attacks: Status: Inactive Plan Pt tolerating TMS well. Continue TMS treatment protocol
--- NOTE | 2025-07-16 10:44 | HO.TMSDAILY2 ---
TMS Daily Progress Note Daily TMS Progress Note Date of Service: 07/14/25 Week #: 3 Treatment #(10-16): 14 PHQ-9 Pre-Treatment (1-): 21 PHQ-9 Most Recent (10-13): 24 SUSIE-7 Pre-Treatment (0-21): 18 SUSIE-7 Most Recent (0-21): 15 CGI-I Most Recent: 0 = Not Assessed Q-LES-Q-SF Most Recent: 41 Reviewed: TMS Tech Note Reviewed Verification: I have reviewed the TMS Health Director Note and agree with the contents. The patient remains a candidate to continue TMS treatment per protocol. Assessment and Plan (1) Major depressive disorder, recurrent severe without psychotic features: Status: Inactive (2) Generalized anxiety disorder with panic attacks: Status: Inactive Plan Pt tolerating TMS well. Continue TMS treatment protocol
--- NOTE | 2025-07-16 10:45 | HO.TMSDAILY2 ---
TMS Daily Progress Note Daily TMS Progress Note Date of Service: 07/16/25 Week #: 4 Treatment #(10-16): 16 PHQ-9 Pre-Treatment (-): 21 PHQ-9 Most Recent (10-13): 24 SUSIE-7 Pre-Treatment (0-21): 18 SUSIE-7 Most Recent (0-21): 15 CGI-I Most Recent: 0 = Not Assessed Q-LES-Q-SF Most Recent: 41 Reviewed: TMS Tech Note Reviewed Verification: I have reviewed the TMS Tailor Women'S Garment Alteration Note and agree with the contents. The patient remains a candidate to continue TMS treatment per protocol. Assessment and Plan (1) Major depressive disorder, recurrent severe without psychotic features: Status: Inactive (2) Generalized anxiety disorder with panic attacks: Status: Inactive Plan Pt tolerating TMS well. Continue TMS treatment protocol
--- NOTE | 2025-07-20 13:09 | HO.TMSDAILY2 ---
TMS Daily Progress Note Daily TMS Progress Note Date of Service: 07/20/25 Week #: 4 Treatment #(10-16): 17 PHQ-9 Pre-Treatment (-): 21 PHQ-9 Most Recent (10-13): 19 SUSIE-7 Pre-Treatment (0-21): 18 SUSIE-7 Most Recent (0-21): 14 CGI-I Most Recent: 4 = No Change Q-LES-Q-SF Most Recent: 41 Reviewed: TMS Tech Note Reviewed Verification: I have reviewed the TMS Stull Hewer Note and agree with the contents. The patient remains a candidate to continue TMS treatment per protocol. Assessment and Plan (1) Major depressive disorder, recurrent severe without psychotic features: Status: Inactive (2) Generalized anxiety disorder with panic attacks: Status: Inactive Plan Pt tolerating TMS well. Continue TMS treatment protocol
--- NOTE | 2025-08-11 16:58 | HO.TMSDAILY2 ---
TMS Daily Progress Note Daily TMS Progress Note Date of Service: 07/21/25 Week #: 4 Treatment #(10-16): 18 PHQ-9 Pre-Treatment (-): 21 PHQ-9 Most Recent (10-13): 19 SUSIE-7 Pre-Treatment (0-21): 18 SUSIE-7 Most Recent (0-21): 14 CGI-I Most Recent: 4 = No Change Q-LES-Q-SF Most Recent: 41 Reviewed: TMS Tech Note Reviewed Verification: I have reviewed the TMS Refrigerated Cargo Clerk Note and agree with the contents. The patient remains a candidate to continue TMS treatment per protocol. Assessment and Plan (1) Major depressive disorder, recurrent severe without psychotic features: Status: Acute (2) Generalized anxiety disorder with panic attacks: Status: Inactive Plan Pt tolerating TMS well. Continue TMS treatment protocol
--- NOTE | 2025-08-11 16:59 | HO.TMSDAILY2 ---
TMS Daily Progress Note Daily TMS Progress Note Date of Service: 07/23/25 Week #: 4 Treatment #(10-16): 20 PHQ-9 Pre-Treatment (-): 21 PHQ-9 Most Recent (10-13): 19 SUSIE-7 Pre-Treatment (0-21): 18 SUSIE-7 Most Recent (0-21): 14 CGI-I Most Recent: 4 = No Change Q-LES-Q-SF Most Recent: 41 Reviewed: TMS Tech Note Reviewed Verification: I have reviewed the TMS Program Production Specialist Note and agree with the contents. The patient remains a candidate to continue TMS treatment per protocol. Assessment and Plan (1) Major depressive disorder, recurrent severe without psychotic features: Status: Acute (2) Generalized anxiety disorder with panic attacks: Status: Inactive Plan Pt tolerating TMS. Continue TMS treatment protocol
--- NOTE | 2025-08-11 17:01 | P.PNPS_ITS ---
TMS Daily Progress Note Daily TMS Progress Note Date of Service: 07/27/25 Week #: 5 Treatment #(10-16): 22 PHQ-9 Pre-Treatment (-): 21 PHQ-9 Most Recent (10-13): 22 SUSIE-7 Pre-Treatment (0-21): 18 SUSIE-7 Most Recent (0-21): 14 CGI-I Most Recent: 4 = No Change Q-LES-Q-SF Most Recent: 41 Reviewed: TMS Tech Note Reviewed Verification: I have reviewed the TMS Statistics Tutor Note and agree with the contents. The patient remains a candidate to continue TMS treatment per protocol. Assessment and Plan (1) Major depressive disorder, recurrent severe without psychotic features: Status: Acute (2) Generalized anxiety disorder with panic attacks: Status: Inactive Plan Pt very anxious about medical condition; reports her outpt doctor thinks she has an eating disorder but she denies. Reviewed labs with patient. she will discuss with her PCP whom she sees tomorrow. Pt tolerating TMS. Continue TMS treatment protocol
--- NOTE | 2025-08-11 17:03 | HO.TMSDAILY2 ---
TMS Daily Progress Note Daily TMS Progress Note Date of Service: 07/28/25 Week #: 5 Treatment #(10-16): 23 PHQ-9 Pre-Treatment (-): 21 PHQ-9 Most Recent (10-13): 22 SUSIE-7 Pre-Treatment (0-21): 18 SUSIE-7 Most Recent (0-21): 14 CGI-I Most Recent: 4 = No Change Q-LES-Q-SF Most Recent: 41 Reviewed: TMS Tech Note Reviewed Verification: I have reviewed the TMS Milk Drying Machine Operator Note and agree with the contents. The patient remains a candidate to continue TMS treatment per protocol. Assessment and Plan (1) Major depressive disorder, recurrent severe without psychotic features: Status: Acute (2) Generalized anxiety disorder with panic attacks: Status: Inactive Plan Pt very anxious about medical condition; pt tolerating TMS. Continue TMS treatment protocol
--- NOTE | 2025-08-11 17:06 | P.PNPS_ITS ---
TMS Daily Progress Note Daily TMS Progress Note Date of Service: 08/03/25 Week #: 6 Treatment #(10-16): 27 PHQ-9 Pre-Treatment (1-): 21 PHQ-9 Most Recent (10-13): 21 SUSIE-7 Pre-Treatment (0-21): 18 SUSIE-7 Most Recent (0-21): 10 CGI-I Most Recent: 4 = No Change Q-LES-Q-SF Most Recent: 41 Reviewed: TMS Tech Note Reviewed Verification: I have reviewed the TMS Nail Galvanizer Note and agree with the contents. The patient remains a candidate to continue TMS treatment per protocol. Assessment and Plan (1) Major depressive disorder, recurrent severe without psychotic features: Status: Acute (2) Generalized anxiety disorder with panic attacks: Status: Inactive Plan Pt tolerating TMS. Continue TMS treatment protocol
--- NOTE | 2025-08-11 17:07 | P.PNPS_ITS ---
TMS Daily Progress Note Daily TMS Progress Note Date of Service: 08/04/25 Week #: 6 Treatment #(10-16): 28 PHQ-9 Pre-Treatment (-): 21 PHQ-9 Most Recent (10-13): 21 SUSIE-7 Pre-Treatment (0-21): 18 SUSIE-7 Most Recent (0-21): 10 CGI-I Most Recent: 4 = No Change Q-LES-Q-SF Most Recent: 41 Reviewed: TMS Tech Note Reviewed Verification: I have reviewed the TMS Building Performance Consultant Note and agree with the contents. The patient remains a candidate to continue TMS treatment per protocol. Assessment and Plan (1) Major depressive disorder, recurrent severe without psychotic features: Status: Acute (2) Generalized anxiety disorder with panic attacks: Status: Inactive Plan Pt tolerating TMS. Continue TMS treatment protocol
--- NOTE | 2025-08-27 12:24 | HO.TMSDAILY2 ---
TMS Daily Progress Note Daily TMS Progress Note Date of Service: 08/27/25 Week #: 6 Treatment #(1-30): 30 PHQ-9 Pre-Treatment (1-): 21 PHQ-9 Most Recent (10-13): 21 SUSIE-7 Pre-Treatment (0-21): 18 SUSIE-7 Most Recent (0-21): 10 CGI-I Most Recent: 4 = No Change Q-LES-Q-SF Most Recent: 41 Reviewed: TMS Tech Note Reviewed Verification: I have reviewed the TMS Network Operations Analyst Note and agree with the contents. The patient remains a candidate to continue TMS treatment per protocol. Assessment and Plan (1) Major depressive disorder, recurrent severe without psychotic features: Status: Acute (2) Generalized anxiety disorder with panic attacks: Status: Inactive Plan Pt completed treatment number 30. Her PHQ9 remained the same 21 at start of treatment and 21 today. Pt anxiety appeared to improve with admission GAD7= 18 and today = 10. Pt continued to be concerned for medical issues. She decided to stop TMS after treatment number 30 so she could focus on her medical concerns. Pt will follow up with outpatient providers
== END 2025-08-27 12:35 | disposition home or self-care (01) ==
LOC: HO.PTMS 13:00
PROVIDERS: Visit Provider Clinical Nurse Specialist Psychiatric/Mental Health
DX: F33.2 Major depressive disorder, recurrent severe without psychotic features (principal); F41.1 Generalized anxiety disorder; F41.0 Panic disorder [episodic paroxysmal anxiety]
CPT/HCPCS: 90867; 90868